=== PATIENT | male | born 1985 | race Caucasian/White ===

== ENCOUNTER 2018-03-17 14:45 | Emergency (ER) | payer OTHER ==
[2018-03-17] MEDS: METOPROLOL TARTRATE 50 MG TAB PO (15:32)
== END 2018-03-17 16:38 | disposition home or self-care (01) ==
LOC: NEPD 14:45
DX: R00.0 Tachycardia, unspecified (principal); F17.200 Nicotine dependence, unspecified, uncomplicated; F20.9 Schizophrenia, unspecified; F31.9 Bipolar disorder, unspecified; Z91.14 Patient's other noncompliance with medication regimen
CPT/HCPCS: 99281

== ENCOUNTER 2018-03-17 21:07 | Emergency (ER) | payer SELFPAY | END 2018-03-17 22:00 | disposition left against medical advice (07) | LOC: NEPD 22:00 | DX: Z00.00 Encounter for general adult medical examination without abnormal findings (principal) | CPT/HCPCS: 99281 ==

== ENCOUNTER 2018-03-19 10:55 | Emergency (ER) | payer OTHER ==
[~2018-03-19] VITALS: Ht 180.3 cm; Wt 88.0 kg
[~2018-03-19 10:55] MED LIST: KLON2TAB PO; LITH600C PO; METO-309 PO; ZOLO100T PO; levodopa PO
[2018-03-19 11:04] VITALS: BP 144/74; PULSE 106; RESP 15; TEMP 97.9; O2SAT 99
--- NOTE | 2018-03-19 11:39 | PD ---
HPI Chief Complaint: Psychiatric Symptoms Time Seen by Provider: 11:15 Travel History International Travel<30 days: No Contact w/Intl Traveler<30days: No Traveled to known affect area: No History of Present Illness HPI Is a 33-year-old male presents emergency department stating that he is depressed and having "suicidal ideations". He states that he feels like his "nerves are sick" and that he "needs an antibiotic". He reports that he was brought over from [place] a couple weeks ago for psychosis. He was admitted to the psychiatric hoang. He states his been stuck in [facility] since. States he was supposed to get a bus pass out of town but he got arrested has been in the [facility] for 10 days. He got out about 3 days ago. Reports since then he has been using drugs including [place] and marijuana. He states he has not slept. He states that he is been feeling more depressed with thoughts of killing himself. History Past Medical History Narrative Medical Schizophrenia/bipolar disorder/depression Tetanus Vaccination: Unknown Past Surgical History Surgical History: No Previous Surgery Social History Alcohol Use: No Tobacco Use: Yes (1PPD) Allergies-Medications (Allergen,Severity, Reaction): Coded Allergies: amoxicillin (Verified Allergy, Unknown, 03/19/18) azithromycin (Verified Allergy, Unknown, Rash, 03/19/18) Reported Meds & Prescriptions Reported Meds & Active Scripts Active Lopressor (Metoprolol Tartrate) 50 Mg Tab 25 Mg PO BID Reported [levodopa] 25 Mg PO BID Zoloft (Sertraline HCl) 100 Mg Tab 100 Mg PO DAILY [place] Carbonate 600 Mg Cap 800 Mg PO BID Klonopin (Clonazepam) 2 Mg Tab 2 Mg PO TID Review of Systems Except as stated in HPI: all other systems reviewed are Neg Physical Exam Narrative GENERAL: 33-year-old man, no acute distress. SKIN: Focused skin assessment warm/dry. HEAD: Atraumatic. Normocephalic. EYES: Pupils equal and round. No scleral icterus. No injection or drainage. ENT: No nasal bleeding or discharge. Mucous membranes pink and moist. NECK: Trachea midline. No JVD. CARDIOVASCULAR: Regular rate and rhythm. No murmur appreciated. RESPIRATORY: No accessory muscle use. Clear to auscultation. Breath sounds equal bilaterally. GASTROINTESTINAL: Abdomen soft, non-tender, nondistended. Hepatic and splenic margins not palpable. MUSCULOSKELETAL: No obvious deformities. No edema peer NEUROLOGICAL: Awake and alert. No obvious cranial nerve deficits. Motor grossly within normal limits. Normal speech. PSYCHIATRIC: Bizarre, somewhat flat, not obviously responding to internal stimuli. Data Data Last Documented VS Vital Signs Date Time Temp Pulse Resp B/P (MAP) Pulse Ox O2 Delivery O2 Flow Rate FiO2 03/19/18 11:04 97.9 106 15 144/74 (97) 99 Orders Orders Complete Blood Count With Diff (03/19/18 11:33) Comprehensive Metabolic Panel (03/19/18 11:33) Thyroid Stimulating Hormone (03/19/18 11:33) Psych Screen (03/19/18 11:33) Drug Screen, Random Urine (03/19/18 11:33) MDM Medical Decision Making Medical Screen Exam Complete: Yes Emergency Medical Condition: Yes Differential Diagnosis Substance-induced mood disorder, depression, malingering, other Narrative Course Medical decision making 33-year-old male presents emerged from complaining of depression and suicidal ideation in the setting of illicit drug use and a history of reported schizophrenia. Recent admission for psychosis. Patient looks well. No other complaints. Patient is medically clear for psychiatric evaluation. Diagnosis Primary Impression: Substance induced mood disorder Noé Rodriguez MD March 19, 2018 11:39
[2018-03-19 12:04] LABS: AUTOMATED NEUTROPHIL # 6.4 TH/MM3 (1.8-7.7); BASOPHIL # 0.1 TH/MM3 (0-0.2); BASOPHIL % 0.8 % (0.0-2.0); EOSINOPHIL # 0.2 TH/MM3 (0-0.4); EOSINOPHIL % 1.7 % (0.0-4.0); HEMATOCRIT 39.8 % (39.0-51.0); HEMOGLOBIN 13.6 GM/DL (13.0-17.0); LYMPH % 27.6 % (9.0-44.0); LYMPHOCYTE # 2.8 TH/MM3 (1.0-4.8); MEAN CELL VOLUME 90.3 FL (80.0-100.0); MEAN CORPUSCULAR HEMOGLOBIN 30.8 PG (27.0-34.0); MEAN CORPUSCULAR HGB CONC 34.1 % (32.0-36.0); MEAN PLATELET VOLUME 8.3 FL (7.0-11.0); MONO % 7.6 % (0.0-8.0); MONOCYTE # 0.8 TH/MM3 (0-0.9); NEUT % 62.3 % (16.0-70.0); PLATELET COUNT 247 TH/MM3 (150-450); RED BLOOD COUNT 4.41 MIL/MM3 (4.50-5.90); RED CELL DISTRIBUTION WIDTH 13.3 % (11.6-17.2); WHITE BLOOD COUNT 10.3 TH/MM3 (4.0-11.0)
[2018-03-19 12:18] LABS: ALBUMIN 3.6 GM/DL (3.4-5.0); AST (GOT) 20 U/L (15-37); BICARBONATE 27.2 MEQ/L (21.0-32.0); BLOOD UREA NITROGEN 15 MG/DL (7-18); CALCIUM 8.5 MG/DL (8.5-10.1); CHLORIDE 113 MEQ/L (98-107); CREATININE 1.25 MG/DL (0.60-1.30); GLOMERULAR FILTRATION RATE 67 ML/MIN (>89); GLUCOSE,RANDOM 103 MG/DL (74-106); SODIUM (NA) 146 MEQ/L (136-145)
[2018-03-19 12:19] LABS: ALT (GPT) 28 U/L (12-78)
[2018-03-19 12:29] LABS: ALKALINE PHOSPHATASE 110 U/L (45-117); TOTAL BILIRUBIN ADULT 0.2 MG/DL (0.2-1.0); TOTAL PROTEIN 7.3 GM/DL (6.4-8.2)
--- NOTE | 2018-03-19 16:52 | PD ---
History of Present Illness Chief Complaint: Psychiatric Symptoms Time Seen by Provider: 16:40 Travel History International Travel<30 Days: No Contact w/Intl Traveler<30days: No Known affected area: No Legal Status Legal Status: Voluntary History of Present Illness: History of Present Illness HPI Patient is a 33-year-old, single, homeless male with history of unspecified psychosis, substance use disorder including cocaine and leona who presents to emergency department voluntarily requesting a psychiatric evaluation with complaint of depression and having "suicidal ideations". He states that he feels like his "nerves are sick" and that he "needs an antibiotic". Patient was most recently admitted to our inpatient psychiatric unit on March 05 and discharged on March 09. Since his discharge from the inpatient psychiatric unit he reports he was arrested for wilde theft and was released 3 days ago. He admits to having used cocaine as well as leona since his release from residential. The patient also tells me that he is trying to get a bus ticket to [facility] and does came to the hospital since the hospital had promised him that they would get him such a ticket. EMR has been reviewed. Current toxicology is positive for cocaine. Patient is seen in [facility]. He has found sleeping but is arousable. He is calm and cooperative. Fair amount of eye contact. Speech is clear and logical and goal directed. He does not appear to be internally preoccupied and denies any hallucinations. He denies any suicidal or homicidal ideation, intent or plan. He reports that he had not slept for the past 3 nights due to his use of substances. He is appreciative today that he was able to sleep while he was here. He does not have any interest in getting back on his psychiatric medications at this time. As stated previously his main concern is being able to get a bus ticket to get back to [facility]. PFSH Past Medical History Asthma: Yes Bipolar Disorder: Yes Anxiety: Yes Depression: Yes Heart Rhythm Problems: Yes (tachycardia) COPD: No Cerebrovascular Accident: No Diminished Hearing: No Endocrine: Yes Genitourinary: No Immune Disorder: No Implanted Vascular Access Dvce: No Musculoskeletal: No Neurologic: Yes (FIBROMYALGIA) Psychiatric: Yes (Manic Depression) Reproductive: No Respiratory: Yes (ASTHMA) Immunizations Current: Yes Migraines: No Schizophrenia: Yes Tetanus Vaccination: Unknown Past Surgical History Surgical History: No Previous Surgery Abdominal Surgery: No AICD: No Arteriovenous Shunt: No Cardiac Surgery: No Ear Surgery: No Endocrine Surgery: No Eye Surgery: No Genitourinary Surgery: No Gynecologic Surgery: No Insulin Pump: No Joint Replacement: No Oral Surgery: No Pacemaker: No Thoracic Surgery: No Other Surgery: Yes Psychiatric History Psychiatric History Hx Psychiatric Treatment: Inpatient psychiatric admission 03/05/2018. Reports history of previous psych admissions but unable to provide any details. No previous history of suicide attempt. History of Inpatient Treatment: Yes Guns or firearms in home: No Social History Single, never , no children. Has completed 1 year of college. On SSI. Homeless Hx Alcohol Use: No Hx Tobacco Use: Yes (1PPD) Hx Substance Use: Yes Substance Use Type: Ecstasy, Cocaine Other Substances Used: Spice, Leona, Ecstasy Hx of Substance Use Treatment: No Allergies-Medications (Allergen,Severity, Reaction): Coded Allergies: amoxicillin (Verified Allergy, Unknown, 03/19/18) azithromycin (Verified Allergy, Unknown, Rash, 03/19/18) Reported Meds & Prescriptions Reported Meds & Active Scripts Active Lopressor (Metoprolol Tartrate) 50 Mg Tab 25 Mg PO BID Reported [levodopa] 25 Mg PO BID Zoloft (Sertraline HCl) 100 Mg Tab 100 Mg PO DAILY [place] Carbonate 600 Mg Cap 800 Mg PO BID Klonopin (Clonazepam) 2 Mg Tab 2 Mg PO TID Review of Systems Except as stated in HPI: all other systems reviewed are Neg Mental Status Examination Appearance: Disheveled Consciousness: Alert Orientation: x4 Motor Activity: Normal gait Speech: Unremarkable Language: Adequate Fund of Knowledge: Adequate Attention and Concentration: Adequate Memory: Unremarkable Mood: Appropriate Affect: Appropriate Thought Process & Associations: Intact, Logical, Goal directed Thought Content: Appropriate Hallucination Type: None Delusion Type: None Suicidal Ideation: No Suicidal Plan: No Suicidal Intention: No Homicidal Ideation: No Homicidal Plan: No Homicidal Intention: No Insight: Poor Judgment: Impulsive MDM Medical Decision Making Medical Record Reviewed: Yes Assessment/Plan Patient is a 33-year-old, single, homeless male with history of unspecified psychosis, substance use disorder including cocaine and leona who presents to emergency department voluntarily requesting a psychiatric evaluation with complaint of depression and having "suicidal ideations". He states that he feels like his "nerves are sick" and that he "needs an antibiotic". Patient was most recently admitted to our inpatient psychiatric unit on March 05 and discharged on March 09. Since his discharge from the inpatient psychiatric unit he reports he was arrested for wilde theft and was released 3 days ago. He admits to having used cocaine as well as leona since his release from residential. The patient also tells me that he is trying to get a bus ticket to [facility] and does came to the hospital since the hospital had promised him that they would get him such a ticket. Patient was allowed to rest for some time and he slept. He did not present any evidence of any hallucinations, no psychosis, no delusions and no paranoia. No suicidal or homicidal ideation. The patient does not meet criteria for inpatient psychiatric treatment. He is provided information on services at [facility] and encouraged to follow up there tomorrow for medication. Patient is psychiatric clear for discharge from the ED. Orders Orders Complete Blood Count With Diff (03/19/18 11:33) Comprehensive Metabolic Panel (03/19/18 11:33) Thyroid Stimulating Hormone (03/19/18 11:33) Psych Screen (03/19/18 11:33) Drug Screen, Random Urine (03/19/18 11:33) Diet Regular Basic (03/19/18 Lunch) Diet Regular Basic (03/19/18 Dinner) Results Vital Signs Date Time Temp Pulse Resp B/P (MAP) Pulse Ox O2 Delivery O2 Flow Rate FiO2 03/19/18 11:04 97.9 106 15 144/74 (97) 99 Laboratory Tests Test 03/19/18 11:45 03/19/18 12:50 White Blood Count 10.3 Red Blood Count 4.41 Hemoglobin 13.6 Hematocrit 39.8 Mean Corpuscular Volume 90.3 Mean Corpuscular Hemoglobin 30.8 Mean Corpuscular Hemoglobin Concent 34.1 Red Cell Distribution Width 13.3 Platelet Count 247 Mean Platelet Volume 8.3 Neutrophils (%) (Auto) 62.3 Lymphocytes (%) (Auto) 27.6 Monocytes (%) (Auto) 7.6 Eosinophils (%) (Auto) 1.7 Basophils (%) (Auto) 0.8 Neutrophils # (Auto) 6.4 Lymphocytes # (Auto) 2.8 Monocytes # (Auto) 0.8 Eosinophils # (Auto) 0.2 Basophils # (Auto) 0.1 CBC Comment DIFF FINAL Differential Comment Blood Urea Nitrogen 15 Creatinine 1.25 Random Glucose 103 Total Protein 7.3 Albumin 3.6 Calcium Level 8.5 Alkaline Phosphatase 110 Aspartate Amino Transf (AST/SGOT) 20 Alanine Aminotransferase (ALT/SGPT) 28 Total Bilirubin 0.2 Sodium Level 146 Potassium Level 4.1 Chloride Level 113 Carbon Dioxide Level 27.2 Anion Gap 6 Estimat Glomerular Filtration Rate 67 Thyroid Stimulating Hormone 3rd Gen 0.431 Urine Opiates Screen NEG Urine Barbiturates Screen NEG Urine Amphetamines Screen NEG Urine Benzodiazepines Screen NEG Urine Cocaine Screen POS Urine Cannabinoids Screen NEG Diagnosis Primary Impression: Cocaine abuse Additional Impression: Substance induced mood disorder Psychiatrically Cleared: Yes Med/ Other Pt Specific Info: No Meds Exist/No RX given Disposition: 01 DISCHARGE HOME Condition: Stable Problem Qualifiers Sandra Acevedo March 19, 2018 16:52
--- NOTE | 2018-03-19 17:14 | PD ---
Physical Exam Time Seen by Provider: 17:13 ENE Hand has evaluated the patient and cleared the patient for discharge. Data Data Last Documented VS Vital Signs Date Time Temp Pulse Resp B/P (MAP) Pulse Ox O2 Delivery O2 Flow Rate FiO2 03/19/18 11:04 97.9 106 15 144/74 (97) 99 Orders Orders Complete Blood Count With Diff (03/19/18 11:33) Comprehensive Metabolic Panel (03/19/18 11:33) Thyroid Stimulating Hormone (03/19/18 11:33) Psych Screen (03/19/18 11:33) Drug Screen, Random Urine (03/19/18 11:33) Diet Regular Basic (03/19/18 Lunch) Diet Regular Basic (03/19/18 Dinner) Labs Laboratory Tests Test 03/19/18 11:45 03/19/18 12:50 White Blood Count 10.3 TH/MM3 Red Blood Count 4.41 MIL/MM3 Hemoglobin 13.6 GM/DL Hematocrit 39.8 % Mean Corpuscular Volume 90.3 FL Mean Corpuscular Hemoglobin 30.8 PG Mean Corpuscular Hemoglobin Concent 34.1 % Red Cell Distribution Width 13.3 % Platelet Count 247 TH/MM3 Mean Platelet Volume 8.3 FL Neutrophils (%) (Auto) 62.3 % Lymphocytes (%) (Auto) 27.6 % Monocytes (%) (Auto) 7.6 % Eosinophils (%) (Auto) 1.7 % Basophils (%) (Auto) 0.8 % Neutrophils # (Auto) 6.4 TH/MM3 Lymphocytes # (Auto) 2.8 TH/MM3 Monocytes # (Auto) 0.8 TH/MM3 Eosinophils # (Auto) 0.2 TH/MM3 Basophils # (Auto) 0.1 TH/MM3 CBC Comment DIFF FINAL Differential Comment Blood Urea Nitrogen 15 MG/DL Creatinine 1.25 MG/DL Random Glucose 103 MG/DL Total Protein 7.3 GM/DL Albumin 3.6 GM/DL Calcium Level 8.5 MG/DL Alkaline Phosphatase 110 U/L Aspartate Amino Transf (AST/SGOT) 20 U/L Alanine Aminotransferase (ALT/SGPT) 28 U/L Total Bilirubin 0.2 MG/DL Sodium Level 146 MEQ/L Potassium Level 4.1 MEQ/L Chloride Level 113 MEQ/L Carbon Dioxide Level 27.2 MEQ/L Anion Gap 6 MEQ/L Estimat Glomerular Filtration Rate 67 ML/MIN Thyroid Stimulating Hormone 3rd Gen 0.431 uIU/ML Urine Opiates Screen NEG Urine Barbiturates Screen NEG Urine Amphetamines Screen NEG Urine Benzodiazepines Screen NEG Urine Cocaine Screen POS Urine Cannabinoids Screen NEG MDM Supervised Visit with JEREMY: No Narrative Course ENE Flores has evaluated the patient and cleared the patient for discharge. Patient contracts safety. Denies suicidal or homicidal ideations. Patient will be provided community resource packet to [facility] for follow-up. Has friends and family for support. Patient was medically cleared by alternate provider prior to psych screening. Patient has been evaluated by psychiatry and and is now cleared for discharge. Diagnosis Primary Impression: Cocaine abuse Additional Impression: Substance induced mood disorder Referrals: [facility] (Out patient) [facility] Primary Care Physician Psychiatrist Flaquita [facility] Patient Instructions: Cocaine Abuse (ED), General Instructions, Mood Disorders (ED) Additional Instruction: Contract safety to your self and others Follow-up with psychiatry Follow-up with primary care provider Follow-up with Tylor Soni Return to the emergency department immediately with worsening of symptoms Med/Other Pt SpecificInfo: No Change to Meds, No Meds Exist/No RX given Disposition: 01 DISCHARGE HOME Condition: Stable Opal Ledesma March 19, 2018 17:14
== END 2018-03-19 17:32 | disposition home or self-care (01) ==
LOC: NEPD 10:55 → NEPJ 17:32
DX: F14.14 Cocaine abuse with cocaine-induced mood disorder (principal); F20.9 Schizophrenia, unspecified; F31.9 Bipolar disorder, unspecified; F17.200 Nicotine dependence, unspecified, uncomplicated; Z79.899 Other long term (current) drug therapy
CPT/HCPCS: 80053; 80307; 84443; 85025; 99283

== ENCOUNTER 2018-03-23 07:08 | Emergency (ER) | payer SELFPAY ==
[2018-03-23 07:18] VITALS: BP 127/77; PULSE 103; RESP 18; TEMP 98; O2SAT 98
--- NOTE | 2018-03-23 07:41 | PD ---
HPI Chief Complaint: Pain: Acute or Chronic Time Seen by Provider: 07:38 Travel History International Travel<30 days: No Contact w/Intl Traveler<30days: No Traveled to known affect area: No History of Present Illness HPI 33-year-old male who is homeless, with frequent visits to the emergency department, presents emergency department for evaluation of bilateral foot pain. Patient states he has walked long distances. He is requesting IV fluid for his foot pain. Denies any injury. Denies any fever chills. Denies any other symptoms at this time. History Past Medical Histgory Medical History: Denies Significant Hx Tetanus Vaccination: Unknown Social History Alcohol Use: No Tobacco Use: Yes (1PPD) Allergies-Medications (Allergen,Severity, Reaction): Coded Allergies: amoxicillin (Verified Allergy, Unknown, 03/19/18) azithromycin (Verified Allergy, Unknown, Rash, 03/19/18) Reported Meds & Prescriptions Reported Meds & Active Scripts Active Lopressor (Metoprolol Tartrate) 50 Mg Tab 25 Mg PO BID Reported [levodopa] 25 Mg PO BID Zoloft (Sertraline HCl) 100 Mg Tab 100 Mg PO DAILY [place] Carbonate 600 Mg Cap 800 Mg PO BID Klonopin (Clonazepam) 2 Mg Tab 2 Mg PO TID Review of Systems Except as stated in HPI: all other systems reviewed are Neg Physical Exam Narrative GENERAL: Well-nourished, unkempt male patient, ambulatory and in no acute distress SKIN: Focused skin assessment warm/dry. No erythema or edema. The distal feet are peeling, however the skin appears dry. There is no drainage. No cracking. No obvious trauma. HEAD: Normocephalic. EYES: No scleral icterus. No injection or drainage. NECK: Supple, trachea midline. No JVD or lymphadenopathy. CARDIOVASCULAR: Elevated rate and rhythm without murmurs, gallops, or rubs. RESPIRATORY: Breath sounds equal bilaterally. No accessory muscle use. MUSCULOSKELETAL: No cyanosis, or edema. BACK: Nontender without obvious deformity. No CVA tenderness. Data Data Last Documented VS Vital Signs Date Time Temp Pulse Resp B/P (MAP) Pulse Ox O2 Delivery O2 Flow Rate FiO2 03/23/18 07:52 97 03/23/18 07:18 98.0 103 18 127/77 (94) MDM Medical Screen Exam Complete: Yes Emergency Medical Condition: No Differential Diagnosis Foot pain Narrative Course 33-year-old male presents emergency department for evaluation of bilateral foot pain after walking long distances per his report. The feet appear without erythema or edema. The skin is intact. There is some peeling of the distal feet however this is dry. Patient is mildly tachycardic but does use cocaine and this could likely be secondary to that. Patient appears nontoxic. At this time there are no urgent or emergent needs medical intervention identified. A medical screening exam was performed: At the time of evaluation the presenting medical condition was determined not to be of an emergent nature. The patient was given the option of receiving additional care, but declined. Patient was given options for additional community resources from which to obtain care. The Patient Has Been advised to seek medical attention for their presenting complaint. The patient has been advised to return to the ER at any time if an emergent condition develops. Primary Impression: Encounter for medical screening examination Condition: Stable Justina Núñez March 23, 2018 07:41
== END 2018-03-23 07:55 | disposition left against medical advice (07) ==
LOC: NEPD 07:08
DX: M79.672 Pain in left foot (principal); M79.671 Pain in right foot; F14.90 Cocaine use, unspecified, uncomplicated; F17.210 Nicotine dependence, cigarettes, uncomplicated; Z88.0 Allergy status to penicillin; Z79.899 Other long term (current) drug therapy
CPT/HCPCS: 99281

== ENCOUNTER 2018-03-27 19:18 | Emergency (ER) | payer OTHER ==
[2018-03-27 19:26] VITALS: BP 140/92; PULSE 112; RESP 18; TEMP 98.4; O2SAT 97
[2018-03-27] MEDS ORDERED: TOLNAFTATE 1% POWDER 45 GM BTL TOPICAL ONE (22:15)
[2018-03-27] MEDS ORDERED: MICO1POW7 TOPICAL (22:24)
--- NOTE | 2018-03-27 22:24 | PD ---
HPI Chief Complaint: Pain: Acute or Chronic Time Seen by Provider: 22:08 Travel History International Travel<30 days: No Contact w/Intl Traveler<30days: No Traveled to known affect area: No History of Present Illness HPI Patient is a 33-year-old male presenting to the emergency department for evaluation of bilateral foot pain. Patient reports that he is walking a lot and his feet have been wet. He is homeless. He reports his pain is 4 out of 10 , he states there is sore in nature. No alleviating factors, pain is exacerbated with walking. Symptom onset is unknown, symptoms are moderate in nature. No alleviating factors. He has no other complaints at this time. PFSH Past Medical History Asthma: Yes Bipolar Disorder: Yes Anxiety: Yes Depression: Yes Neurologic: Yes (FIBROMYALGIA) Immunizations Current: Yes Schizophrenia: Yes Past Surgical History Other Surgery: Yes Social History Alcohol Use: No Tobacco Use: Yes (1PPD) Substance Use: Yes Allergies-Medications (Allergen,Severity, Reaction): Coded Allergies: amoxicillin (Verified Allergy, Unknown, 03/19/18) azithromycin (Verified Allergy, Unknown, Rash, 03/19/18) Reported Meds & Prescriptions Reported Meds & Active Scripts Active Lopressor (Metoprolol Tartrate) 50 Mg Tab 25 Mg PO BID Reported [levodopa] 25 Mg PO BID Zoloft (Sertraline HCl) 100 Mg Tab 100 Mg PO DAILY [place] Carbonate 600 Mg Cap 800 Mg PO BID Klonopin (Clonazepam) 2 Mg Tab 2 Mg PO TID Review of Systems Except as stated in HPI: all other systems reviewed are Neg Musculoskeletal: Positive: Myalgias Skin: Positive Other Physical Exam Narrative GENERAL: Well-developed, well-nourished, disheveled male. Presenting in no acute distress. SKIN: Warm and dry. Skin to bilateral feet is wet and peeling. No fissures noted in between toes. No erythema or bleeding. HEAD: Normocephalic. EYES: No scleral icterus. No injection or drainage. NECK: Supple, trachea midline. No JVD or lymphadenopathy. CARDIOVASCULAR: Regular rate and rhythm without murmurs, gallops, or rubs. RESPIRATORY: Breath sounds equal bilaterally. No accessory muscle use. GASTROINTESTINAL: Abdomen soft, non-tender, nondistended. MUSCULOSKELETAL: No cyanosis, or edema. BACK: Nontender without obvious deformity. No CVA tenderness. Data Data Last Documented VS Vital Signs Date Time Temp Pulse Resp B/P (MAP) Pulse Ox O2 Delivery O2 Flow Rate FiO2 03/27/18 19:26 98.4 112 18 140/92 (108) 97 Orders Orders Tolnaftate 1% Powder (Tinactin 1% Powder (03/27/18 22:15) MDM Medical Decision Making Medical Screen Exam Complete: Yes Emergency Medical Condition: Yes Interpretation(s) Vital Signs Date Time Temp Pulse Resp B/P (MAP) Pulse Ox O2 Delivery O2 Flow Rate FiO2 03/27/18 19:26 98.4 112 18 140/92 (108) 97 Differential Diagnosis Tinea pedis versus normal examination versus calluses versus other Narrative Course Patient is a 33-year-old male presenting to emergency department for evaluation of bilateral foot pain. On exam patient's feet are wet, exam appears consistent with tinea pedis. Patient will be given antifungal powder and dry socks. He was advised to keep his feet dry, he was given several pairs of socks. Patient was advised to use the powder twice daily. He was encouraged to follow-up at the [facility]. Patient stable for discharge. Diagnosis Primary Impression: Tinea pedis of both feet Referrals: [facility] Patient Instructions: General Instructions, Tinea Pedis (DC) Additional Instructions: Follow-up at the [facility] Keep feet clean and dry Use powder twice daily Return to emergency department for any new or worsening symptoms Med/Other Pt SpecificInfo: Prescription(s) given Scripts Miconazole Topical Powder (Lotrimin AF Topical Powder) 2 % Pow 1 APPLIC TOPICAL BID for Fungal Infection, #1 CAN 0 Refills Prov: Yoon Dean 03/27/18 Disposition: 01 DISCHARGE HOME Condition: Stable Yoon Dean March 27, 2018 22:24
[2018-03-27] MEDS ORDERED: NYSTATIN 100,000 U/GM PWD 15 GM BTL TOPICAL ONE (22:30)
== END 2018-03-27 23:05 | disposition home or self-care (01) ==
LOC: NEPD 19:18
DX: B35.3 Tinea pedis (principal); F31.9 Bipolar disorder, unspecified; F41.8 Other specified anxiety disorders; F17.200 Nicotine dependence, unspecified, uncomplicated; Z87.09 Personal history of other diseases of the respiratory system; Z86.69 Personal history of other diseases of the nervous system and sense organs
CPT/HCPCS: 99282

== ENCOUNTER 2018-04-06 09:57 | Emergency (ER) | payer OTHER ==
[~2018-04-06] VITALS: Ht 180.3 cm; Wt 85.0 kg
[~2018-04-06 09:57] MED LIST changes: -KLON2TAB PO; -METO-309 PO; +MICO1POW7 TOPICAL; -levodopa PO
[2018-04-06 10:04] VITALS: BP 136/83; PULSE 102; RESP 18; TEMP 99.2; O2SAT 96
[2018-04-06] MEDS ORDERED: IBUPROFEN 600 MG TAB PO ONE (10:15)
--- NOTE | 2018-04-06 10:16 | PD ---
HPI Chief Complaint: Pain: Acute or Chronic Time Seen by Provider: 10:08 Travel History International Travel<30 days: No Contact w/Intl Traveler<30days: No Traveled to known affect area: No History of Present Illness HPI 33-year-old man, homeless, schizophrenic, presents emerged from complaining of left thigh pain. States his this morning felt a pulling pain in his left leg. No history of previous injuries. Able to walk. No injuries to the leg, no falls. No other complaints. History Past Medical History Narrative Medical Schizophrenia Influenza Vaccination: Yes Social History Alcohol Use: No Tobacco Use: Yes (1PPD) Allergies-Medications (Allergen,Severity, Reaction): Coded Allergies: amoxicillin (Verified Allergy, Unknown, 03/19/18) azithromycin (Verified Allergy, Unknown, Rash, 03/19/18) Reported Meds & Prescriptions Reported Meds & Active Scripts Active Lotrimin AF Topical Powder (Miconazole Topical Powder) 2 % Pow 1 Applic TOPICAL BID Reported Zoloft (Sertraline HCl) 100 Mg Tab 100 Mg PO DAILY [place] Carbonate 600 Mg Cap 800 Mg PO BID Review of Systems Except as stated in HPI: all other systems reviewed are Neg Physical Exam Narrative GENERAL: Disheveled 33-year-old man, no acute distress. SKIN: Focused skin assessment warm/dry. HEAD: Atraumatic. Normocephalic. CARDIOVASCULAR: Warm and well perfused peer RESPIRATORY: Normal rate and effort. GASTROINTESTINAL: Abdomen soft, non-tender, nondistended. Hepatic and splenic margins not palpable. MUSCULOSKELETAL: Grossly normal appearance of both legs. Full range of motion without pain. No palpable tenderness. Normal gait. NEUROLOGICAL: Awake and alert. No obvious cranial nerve deficits. Motor grossly within normal limits. Normal speech. PSYCHIATRIC: Poor eye contact. Flat affect. Data Data Last Documented VS Vital Signs Date Time Temp Pulse Resp B/P (MAP) Pulse Ox O2 Delivery O2 Flow Rate FiO2 04/06/18 10:04 99.2 102 18 136/83 (100) 96 Orders Orders Ibuprofen (Motrin) (04/06/18 10:15) Ed Discharge Order (04/06/18 10:11) [facility] Medical Decision Making Medical Screen Exam Complete: Yes Emergency Medical Condition: Yes Differential Diagnosis Leg strain or sprain, contusion, sciatica, injury, other Narrative Course Medical decision making 33-year-old male with a leg sprain, schizophrenia, and homeless. He looks fine. The leg exam is unremarkable. He is able to walk without difficulty. Diagnosis Primary Impression: Leg pain Patient Instructions: General Instructions Additional Instructions: Take ibuprofen if needed for leg pain. Med/Other Pt SpecificInfo: No Change to Meds Disposition: 01 DISCHARGE HOME Condition: Stable Noé Rodriguez MD April 06, 2018 10:16
== END 2018-04-06 10:54 | disposition home or self-care (01) ==
LOC: NEPD 09:57
DX: M79.652 Pain in left thigh (principal); F20.9 Schizophrenia, unspecified; F17.200 Nicotine dependence, unspecified, uncomplicated
CPT/HCPCS: 99283

== ENCOUNTER 2018-05-04 12:30 | Emergency (ER) | payer OTHER ==
[~2018-05-04] VITALS: Ht 175.3 cm; Wt 80.0 kg
[2018-05-04] MEDS ORDERED: SILVER SULFADIAZINE 1% CR 50 GM JAR TOPICAL ONE (13:00)
[2018-05-04] MEDS ORDERED: IBUPROFEN 800 MG TAB PO ONE (13:00)
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
[2018-05-04 13:24] VITALS: BP 131/80; PULSE 80; RESP 16; TEMP 97.8; O2SAT 98
[2018-05-04] MEDS ORDERED: SILV1CRE20 TOPICAL (13:49)
[2018-05-04] MEDS ORDERED: CLIN150C14 PO (13:49)
[2018-05-05] MEDS ORDERED: SERO300T PO (12:44)
[2018-05-05] MEDS ORDERED: KLON2TAB PO (12:44)
[2018-05-05] MEDS ORDERED: MEMA1CAP3 PO (12:44)
[2018-05-05] MEDS ORDERED: VORT1TAB3 PO (12:44)
--- NOTE | 2018-05-05 13:42 | EKG ---
Date Performed: 05/04/2018 Time Performed: 12:54:35 PTAGE: 33 years EKG: SINUS TACHYCARDIA WITH SHORT NM INTERVAL INCOMPLETE RIGHT BUNDLE BRANCH BLOCK ABNORMAL RHYT ECG INTERPRETATION BASED ON A DEFAULT AGE OF 41 YEARS NO PREVIOUS TRACING DOCTOR: Javier Bagley Interpretating Date/Time 05/05/2018 13:41:26
[2018-05-09] MEDS ORDERED: CIPR-9 PO (19:19)
== END 2018-05-04 14:17 | disposition home or self-care (01) ==
LOC: NEPE 12:30
DX: T23.201A Burn of second degree of right hand, unspecified site, initial encounter (principal); F20.9 Schizophrenia, unspecified; F31.9 Bipolar disorder, unspecified; X17.XXXA Contact with hot engines, machinery and tools, initial encounter; Z79.899 Other long term (current) drug therapy
CPT/HCPCS: 16020; 93005

== ENCOUNTER 2018-05-05 12:10 | Emergency (ER) | payer OTHER ==
[~2018-05-05 12:10] MED LIST changes: -MICO1POW7 TOPICAL
[2018-05-05 12:30] VITALS: BP 117/72; PULSE 119; RESP 18; TEMP 98.6; O2SAT 97
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
[2018-05-05] MEDS ORDERED: KLON2TAB PO (12:44)
[2018-05-05] MEDS ORDERED: MEMA1CAP3 PO (12:44)
[2018-05-05] MEDS ORDERED: SERO300T PO (12:44)
[2018-05-05] MEDS ORDERED: VORT1TAB3 PO (12:44)
[2018-05-05] MEDS ORDERED: clonazePAM 0.5 MG TAB PO ONE (12:45)
[2018-05-05] MEDS ORDERED: SILVER SULFADIAZINE 1% CR 50 GM JAR TOPICAL ONE (12:45)
[2018-05-05] MEDS: CEPHALEXIN MONOHYDRATE 500 MG CAP PO SCH ×3 (12:45→22:00)
[2018-05-05 13:12] LABS: AUTOMATED NEUTROPHIL # 9.5 TH/MM3 (1.8-7.7); BASOPHIL # 0.1 TH/MM3 (0-0.2); BASOPHIL % 0.6 % (0.0-2.0); EOSINOPHIL # 0.5 TH/MM3 (0-0.4); EOSINOPHIL % 3.5 % (0.0-4.0); HEMATOCRIT 44.5 % (39.0-51.0); HEMOGLOBIN 14.8 GM/DL (13.0-17.0); LYMPH % 13.1 % (9.0-44.0); LYMPHOCYTE # 1.7 TH/MM3 (1.0-4.8); MEAN CELL VOLUME 87.4 FL (80.0-100.0); MEAN CORPUSCULAR HGB CONC 33.2 % (32.0-36.0); MEAN PLATELET VOLUME 9.2 FL (7.0-11.0); MONO % 10.9 % (0.0-8.0); MONOCYTE # 1.4 TH/MM3 (0-0.9); NEUT % 71.9 % (16.0-70.0); PLATELET COUNT 239 TH/MM3 (150-450); RED CELL DISTRIBUTION WIDTH 13.3 % (11.6-17.2); WHITE BLOOD COUNT 13.2 TH/MM3 (4.0-11.0)
[2018-05-05 13:30] LABS: ALT (GPT) 18 U/L (12-78); AST (GOT) 21 U/L (15-37); BICARBONATE 24.6 MEQ/L (21.0-32.0); BLOOD UREA NITROGEN 19 MG/DL (7-18); CALCIUM 8.7 MG/DL (8.5-10.1); CHLORIDE 107 MEQ/L (98-107); CREATININE 1.26 MG/DL (0.60-1.30); GLOMERULAR FILTRATION RATE 66 ML/MIN (>89); GLUCOSE,RANDOM 92 MG/DL (74-106); SODIUM (NA) 140 MEQ/L (136-145)
[2018-05-05 13:40] LABS: ALKALINE PHOSPHATASE 105 U/L (45-117); TOTAL BILIRUBIN ADULT 0.3 MG/DL (0.2-1.0)
[2018-05-05 16:00] VITALS: BP 100/57; PULSE 118; RESP 20; TEMP 98.8; O2SAT 95
[2018-05-05 18:31] VITALS: BP 113/56; PULSE 105; RESP 20; O2SAT 98
[2018-05-06] MEDS: CEPHALEXIN MONOHYDRATE 500 MG CAP PO SCH (06:00)
[2018-05-06 06:12] VITALS: BP 140/66; PULSE 99; RESP 16; TEMP 98.4; O2SAT 97
--- NOTE | 2018-05-06 08:48 | PD ---
Physical Exam Date Seen by Provider: May 06, 2018 Time Seen by Provider: 08:45 Data Data Last Documented VS Vital Signs Date Time Temp Pulse Resp B/P (MAP) Pulse Ox O2 Delivery O2 Flow Rate FiO2 05/06/18 06:12 98.4 99 16 140/66 (90) 97 05/05/18 18:31 Room Air Orders Orders Complete Blood Count With Diff (05/05/18 12:33) Comprehensive Metabolic Panel (05/05/18 12:33) Thyroid Stimulating Hormone (05/05/18 12:33) Psych Screen (05/05/18 12:33) Drug Screen, Random Urine (05/05/18 12:33) Alcohol (Ethanol) (05/05/18 12:33) Clonazepam (Klonopin) (05/05/18 12:45) Silver Sulfadia 1% Crm (50 Gm) (Silvaden (05/05/18 12:45) Wound Care (05/05/18 12:33) Cephalexin (Keflex) (05/05/18 12:45) Diet Regular Basic (05/05/18 Dinner) Diet Regular Basic (05/06/18 Breakfast) Labs Laboratory Tests Test 05/05/18 12:33 05/06/18 05:25 White Blood Count 13.2 TH/MM3 Red Blood Count 5.10 MIL/MM3 Hemoglobin 14.8 GM/DL Hematocrit 44.5 % Mean Corpuscular Volume 87.4 FL Mean Corpuscular Hemoglobin 29.0 PG Mean Corpuscular Hemoglobin Concent 33.2 % Red Cell Distribution Width 13.3 % Platelet Count 239 TH/MM3 Mean Platelet Volume 9.2 FL Neutrophils (%) (Auto) 71.9 % Lymphocytes (%) (Auto) 13.1 % Monocytes (%) (Auto) 10.9 % Eosinophils (%) (Auto) 3.5 % Basophils (%) (Auto) 0.6 % Neutrophils # (Auto) 9.5 TH/MM3 Lymphocytes # (Auto) 1.7 TH/MM3 Monocytes # (Auto) 1.4 TH/MM3 Eosinophils # (Auto) 0.5 TH/MM3 Basophils # (Auto) 0.1 TH/MM3 CBC Comment DIFF FINAL Differential Comment Blood Urea Nitrogen 19 MG/DL Creatinine 1.26 MG/DL Random Glucose 92 MG/DL Total Protein 8.0 GM/DL Albumin 4.0 GM/DL Calcium Level 8.7 MG/DL Alkaline Phosphatase 105 U/L Aspartate Amino Transf (AST/SGOT) 21 U/L Alanine Aminotransferase (ALT/SGPT) 18 U/L Total Bilirubin 0.3 MG/DL Sodium Level 140 MEQ/L Potassium Level 3.7 MEQ/L Chloride Level 107 MEQ/L Carbon Dioxide Level 24.6 MEQ/L Anion Gap 8 MEQ/L Estimat Glomerular Filtration Rate 66 ML/MIN Thyroid Stimulating Hormone 3rd Gen 0.475 uIU/ML Ethyl Alcohol Level LESS THAN 3 MG/DL Urine Opiates Screen NEG Urine Barbiturates Screen NEG Urine Amphetamines Screen NEG Urine Benzodiazepines Screen NEG Urine Cocaine Screen POS Urine Cannabinoids Screen POS MDM Supervised Visit with JEREMY: No Narrative Course 33-year-old male brought to the ED under Gregory act for psychiatric evaluation. He was evaluated by Hira Choe PA-C. He is found to have some superficial mackey and cuts. He was medically cleared. He was then evaluated by Dr. Najera. Gregory act was lifted. He is diagnosed with substance-induced mood disorder. Plan is for the patient to follow-up with outpatient psychiatric resources. He is stable and discharged home. Diagnosis Primary Impression: Burn of hand, right, second degree Qualified Codes: T23.231D - Burn of second degree of multiple right fingers ( nail), not including thumb, subsequent encounter Additional Impression: Substance induced mood disorder Referrals: [facility] Additional Instruction: Keep your wounds clean, dry and covered. Monitor for signs of infection such as drainage, fever, increased pain. Follow-up with [facility]. Return to the ED for any urgent or emergent medical condition. Disposition: 01 DISCHARGE HOME Condition: Stable Nury Braxton May 06, 2018 08:48
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
[2018-05-09] MEDS ORDERED: CIPR-9 PO (19:19)
== END 2018-05-06 09:49 | disposition home or self-care (01) ==
LOC: NEPJ 12:10
DX: Z02.89 Encounter for other administrative examinations (principal); T23.231D Burn of second degree of multiple right fingers (nail), not including thumb, subsequent encounter; F19.94 Other psychoactive substance use, unspecified with psychoactive substance-induced mood disorder; F41.8 Other specified anxiety disorders; F31.9 Bipolar disorder, unspecified; F17.200 Nicotine dependence, unspecified, uncomplicated; Z79.899 Other long term (current) drug therapy; Z87.09 Personal history of other diseases of the respiratory system; Z87.39 Personal history of other diseases of the musculoskeletal system and connective tissue; X16.XXXD Contact with hot heating appliances, radiators and pipes, subsequent encounter
CPT/HCPCS: 16020; 80053; 80307; 84443; 85025

== ENCOUNTER 2018-10-21 09:12 | Inpatient (IN) ==
--- NOTE | 2018-10-21 09:58 | ED ---
HPI General Chief complaint: Psychiatric Symptoms Stated complaint: Psych Eval Time Seen by Provider: 10/21/18 09:45 Source: patient Mode of arrival: ambulatory Limitations: no limitations History of Present Illness HPI narrative: 33yo M with PMH of bipolar disorder/schizophrenia here with c/o suicidal ideations. He was just seen here yesterday but said today he feels worst. Said he did not take drugs today but tried to overdose on mucinex yesterday to get high. Denies any fever, chest pain, sob, n/v, abdominal pain, focal weakness or numbness. Related Data Home Medications Medication Instructions Recorded Confirmed escitalopram oxalate [Lexapro] 5 mg PO BID 10/21/18 10/21/18 mirtazapine [Remeron] 15 mg PO HS 10/21/18 10/21/18 quetiapine [Seroquel] 100 mg PO HS 10/21/18 10/21/18 Allergies Allergy/AdvReac Type Severity Reaction Status Date / Time azithromycin Allergy Intermediate Rash Verified 10/21/18 09:37 Review of Systems ROS: all other systems reviewed are negative FORMERLY [facility], [facility] Social History Social History Substance History: Active Abuse Second Hand Smoke Exposure: Yes Smoking Status: Current every day smoker Tobacco Type: Cigarettes How Often Do You Have a Drink Containing Alcohol: 2 to 3 times a week Recent Travel in [place] within the Last 8 Weeks: No Recent Out of Country Travel within the Last 8 Weeks: No Exam Narrative Exam Narrative: GENERAL: 33yo M not in distress. SKIN: Focused skin assessment warm/dry. Multiple open abrasions to his feet as he states that he was walking barefoot and also has shoes on with no socks. No cellulitis surrounding area at this time. HEAD: Atraumatic. Normocephalic. EYES: Pupils equal and round at 4mm bilaterally. No scleral icterus. No injection or drainage. ENT: No nasal bleeding or discharge. Mucous membranes pink and moist. NECK: Trachea midline. No JVD. CARDIOVASCULAR: Tachycardic in the 115bpm. No murmur appreciated. RESPIRATORY: No accessory muscle use. Clear to auscultation. Breath sounds equal bilaterally. GASTROINTESTINAL: Abdomen soft, non-tender, nondistended. MUSCULOSKELETAL: No obvious deformities. No clubbing. No cyanosis. No edema. NEUROLOGICAL: Awake and alert. No obvious cranial nerve deficits. Motor grossly within normal limits. Normal speech. Course Initial Documented Vital Signs Temperature 97.3 F L 10/21/18 09:34 Pulse Rate 115 H 10/21/18 09:34 Respiratory Rate 20 10/21/18 09:34 Blood Pressure 144/91 H 10/21/18 09:34 Pulse Oximetry 100 10/21/18 09:34 Last Documented Vital Signs Temperature 97.1 F L 10/22/18 06:00 Pulse Rate 92 H 10/22/18 06:00 Respiratory Rate 18 10/22/18 06:00 Blood Pressure 108/72 10/22/18 06:00 Pulse Oximetry 98 10/22/18 06:00 Medical Decision Making MDM Narrative Medical decision making narrative: 33yo M with schizophrenia/bipolar here stating he is suicidal. He was [id number] in the 115s and has always been tachycardic in the past it seems. May be drug related or dehydration. Repeat HR is now 98bpm. He is well appearing. Pt is awake and alert and denies any overdose today. Psych screen ordered. Psych screen labs ordered, my PA will follow up with these results and medically clear after. Pt can go to [facility]. Pt will be for psych evaluation. Medical decision making narrative: During the course of the patients emergency department visit, the patients history, examination, and differential diagnosis were reviewed with the patient. The patient was placed on a monitoring coordinator with oximetry and frequent blood pressure monitoring. The patient was initially provided Labs, ekg, ua, uds. EKG showing 98 beats per minute, SD intervaL 129, QRS duration 110, QT/Qtc . Incomplete RIGHt bundle branch block. The patients laboratory studies were reviewed and remarkable for very mild anemia, mild elevation in sodium and chloride. Calcium is low urine drug screen is negative acetaminophen level negative, salicylate levels negative. No acute findings that need addressing at this time. Patient does have multiple sores to his feet as he was wearing shoes with no socks so okay to apply bacitracin topically twice daily during his stay in the hospital. At this time he is medically cleared for psychiatric evaluation. Medical Screen Exam Complete: Yes Emergency Medical Condition: Yes Medical Screen Exam Complete: Yes Emergency Medical Condition: Yes Differential Diagnosis Differential Diagnosis: Schizophrenia vs. bipolar disorder vs. dehydration vs. drug use vs. electrolyte abnormality Lab Data Lab results reviewed: Yes I reviewed the patient's lab results. Result diagrams: 10/21/18 10:12 10/21/18 10:12 Lab Results 10/21/18 10/21/18 10/21/18 Range/Units 10:12 10:12 10:12 WBC 6.7 (4.0-11.0) th/mm3 RBC 3.87 L (4.50-5.90) mil/mm3 Hgb 12.0 L (13.0-17.0) gm/dL Hct 35.8 L (39.0-51.0) % MCV 92.5 (80.0-100.0) fL MCH 31.0 (27.0-34.0) pg MCHC 33.5 (32.0-36.0) % RDW 14.3 (11.6-17.2) % Plt Count 216 (150-450) th/mm3 MPV 8.6 (7.0-11.0) fL Neut % (Auto) 62.8 (16.0-70.0) % Lymph % (Auto) 26.4 (9.0-44.0) % [place] % (Auto) 7.6 (0.0-8.0) % Eos % (Auto) 2.7 (0.0-4.0) % Baso % (Auto) 0.5 (0.0-2.0) % Neut # (Auto) 4.2 (1.8-7.7) th/mm3 Lymph # (Auto) 1.8 (1.0-4.8) th/mm3 Ellsworth # (Auto) 0.5 (0.0-0.9) th/mm3 Eos # (Auto) 0.2 (0.0-0.4) th/mm3 Baso # (Auto) 0.0 (0.0-0.2) th/mm3 WBC Differential . Differential Comment Auto diff final Sodium 146 H (136-145) meq/L Potassium 3.7 (3.5-5.1) meq/L Chloride 110 H (98-107) meq/L Carbon Dioxide 29.1 (21.0-32.0) meq/L Anion Gap 7 (5-15) meq/L BUN 15 (7-18) mg/dL Creatinine 0.98 (0.60-1.30) mg/dL Estimated GFR 89 (>89) mL/min Random Glucose 114 H (74-106) mg/dL Calcium 8.1 L (8.5-10.1) mg/dL Magnesium 2.2 (1.5-2.5) mg/dL Total Bilirubin 0.1 L (0.2-1.0) mg/dL AST 39 H (15-37) U/L ALT 56 (12-78) U/L Alkaline Phosphatase 96 (45-117) U/L Total Protein 7.0 (6.4-8.2) g/dL Albumin 3.5 (3.4-5.0) g/dL TSH 1.080 (0.358-3.740) uIU/mL Salicylates Less than 1.7 L (2.8-20.0) mg/dL Urine Opiates Screen (Neg) Acetaminophen Less than 2.0 L (10.0-30.0) mcg/mL Ur Barbiturates Screen (Neg) Ur Amphetamines Screen (Neg) U Benzodiazepines Scrn (Neg) Urine Cocaine Screen (Neg) U Cannabinoids Screen (Neg) Serum Alcohol Less than 3 (0-5) mg/dL 10/21/18 Range/Units 10:25 WBC (4.0-11.0) th/mm3 RBC (4.50-5.90) mil/mm3 Hgb (13.0-17.0) gm/dL Hct (39.0-51.0) % MCV (80.0-100.0) fL MCH (27.0-34.0) pg MCHC (32.0-36.0) % RDW (11.6-17.2) % Plt Count (150-450) th/mm3 MPV (7.0-11.0) fL Neut % (Auto) (16.0-70.0) % Lymph % (Auto) (9.0-44.0) % [place] % (Auto) (0.0-8.0) % Eos % (Auto) (0.0-4.0) % Baso % (Auto) (0.0-2.0) % Neut # (Auto) (1.8-7.7) th/mm3 Lymph # (Auto) (1.0-4.8) th/mm3 [place] # (Auto) (0.0-0.9) th/mm3 Eos # (Auto) (0.0-0.4) th/mm3 Baso # (Auto) (0.0-0.2) th/mm3 WBC Differential Differential Comment Sodium (136-145) meq/L Potassium (3.5-5.1) meq/L Chloride (98-107) meq/L Carbon Dioxide (21.0-32.0) meq/L Anion Gap (5-15) meq/L BUN (7-18) mg/dL Creatinine (0.60-1.30) mg/dL Estimated GFR (>89) mL/min Random Glucose (74-106) mg/dL Calcium (8.5-10.1) mg/dL Magnesium (1.5-2.5) mg/dL Total Bilirubin (0.2-1.0) mg/dL AST (15-37) U/L ALT (12-78) U/L Alkaline Phosphatase (45-117) U/L Total Protein (6.4-8.2) g/dL Albumin (3.4-5.0) g/dL TSH (0.358-3.740) uIU/mL Salicylates (2.8-20.0) mg/dL Urine Opiates Screen Neg (Neg) Acetaminophen (10.0-30.0) mcg/mL Ur Barbiturates Screen Neg (Neg) Ur Amphetamines Screen Neg (Neg) U Benzodiazepines Scrn Neg (Neg) Urine Cocaine Screen Neg (Neg) U Cannabinoids Screen Neg (Neg) Serum Alcohol (0-5) mg/dL ECG Data EKG Prior to Arrival: No Attestation: I personally reviewed and interpreted this ECG as follows: Interpretation: NSR 98bpm. Normal axis. SD interval 129ns. QTc 400ms. No significant ST elevation or depression. QRS narrow. Discharge Plan Discharge Disposition Patient Disposition: Sign Out(ED Internal Use Only) Discharge Condition Condition: Stable Discharge Order Discharge Orders: ED Use Only Admit Order (Routine); Ordered 10/21/18 Ordered By: Sloane Lopez Discharge Details Diagnosis: Depression Physicians Team ED Provider: Claudia Schaffer ED Midlevel Provider: Martha Arreguin Primary Care Provider: Primary Care Korina Beasley Attending Provider: Chaiffetz,Riley B. Status ED Status: Left Department Discharge Information Discharge Date/Time: 10/21/18 17:39
[2018-10-21] MEDS ORDERED: Sod Chloride 0.9% Inj 1,000 ML IV.SIG SCH (10:15)
[2018-10-21 10:41] LABS: Baso % (Auto) 0.5 % (0.0-2.0); Eos # (Auto) 0.2 th/mm3 (0.0-0.4); Eos % (Auto) 2.7 % (0.0-4.0); Hematocrit 35.8 % (39.0-51.0); Lymph # (Auto) 1.8 th/mm3 (1.0-4.8); Lymph % (Auto) 26.4 % (9.0-44.0); Mean Corpuscular HGB Conc 33.5 % (32.0-36.0); Mean Corpuscular Volume 92.5 fL (80.0-100.0); Mean Platelet Volume 8.6 fL (7.0-11.0); Mono # (Auto) 0.5 th/mm3 (0.0-0.9); Mono % (Auto) 7.6 % (0.0-8.0); Neut # (Auto) 4.2 th/mm3 (1.8-7.7); Neut % (Auto) 62.8 % (16.0-70.0); Platelet Count 216 th/mm3 (150-450); Red Blood Count 3.87 mil/mm3 (4.50-5.90); Red Cell Distribution Width 14.3 % (11.6-17.2); White Blood Count 6.7 th/mm3 (4.0-11.0)
[2018-10-21 10:57] LABS: Amphetamine Screen,Urine Neg (Neg); Barbiturate Screen,Urine Neg (Neg); Cannabinoid Screen,Urine Neg (Neg); Cocaine Screen,Urine Neg (Neg)
[2018-10-21 11:02] LABS: Opiate Screen,Urine Neg (Neg)
[2018-10-21 11:02] LABS: Albumin 3.5 g/dL (3.4-5.0); Anion Gap 7 meq/L (5-15); Aspartate Aminotransferase 39 U/L (15-37); Blood Urea Nitrogen 15 mg/dL (7-18); Calcium 8.1 mg/dL (8.5-10.1); Carbon Dioxide 29.1 meq/L (21.0-32.0); Chloride 110 meq/L (98-107); Glomerular Filtration Rate 89 mL/min (>89); Glucose,Random 114 mg/dL (74-106); Magnesium 2.2 mg/dL (1.5-2.5); Potassium 3.7 meq/L (3.5-5.1); Sodium 146 meq/L (136-145)
[2018-10-21 11:14] LABS: Alanine Aminotransferase 56 U/L (12-78); Alkaline Phosphatase 96 U/L (45-117)
[2018-10-21] MEDS: Acetaminophen 325 MG Tablet PO PRN (11:45)
[2018-10-21] MEDS ORDERED: Aluminum/Magnesium/Simethacone Susp 30 ML UDC PO PRN (13:51)
--- NOTE | 2018-10-21 16:01 | P.PNPSY ---
This is a 33-year-old single, male who presents voluntarily to this facility reporting suicidal ideation. The patient is well-known to this facility and the psychiatric department. This is his third time here and is many days. He was recently discharged from [facility]'s inpatient unit. His last inpatient admission at this facility was from March 05 - March 08, 2018. His toxicology screen is negative. Patient's behavior is somewhat bizarre he is heard yelling loudly in his room in [facility] when no one is around. When asked what the problem is he reports that "there are spirits in the room and they are cutting me on my wrists and my arms my legs". He points to various places on his body where no cuts are noted. He then goes on to tell me that he has ordered a "tracker off [employer] that pinpoints my location and I am reporting it to the police". He does agree to allow the staff to give him some ETO medications to help him calm down as he is becoming more agitated and I feel he is a danger to himself. He also agrees that he would like to come in for an inpatient admission and be treated. Therefore, I am admitting him to locked inpatient psychiatric unit for further evaluation and treatment as deemed necessary. His medications were verified from [facility] and continued with a consent signed. He has signed himself in voluntarily.
--- NOTE | 2018-10-21 18:56 | ECG ---
Date Performed: 10/21/2018 Time Performed: 10:06:33 PTAGE: 33 years EKG: Sinus rhythm INCOMPLETE RIGHT BUNDLE BRANCH BLOCK BORDERLINE ECG PREVIOUS TRACING : 10/19/2018 16.15 Since the previous tracing, no significant change noted DOCTOR: Maik Covarrubias Interpretating Date/Time 10/21/2018 18:54:24
[2018-10-21] MEDS ORDERED: Influenza (Quadrivalent) Vaccine 0.5 ML Syringe IM ONE (20:00)
[2018-10-21] MEDS: QUEtiapine 100 MG Tablet PO SCH (20:45)
[2018-10-21] MEDS: Escitalopram 10 MG Tablet PO SCH (20:56)
[2018-10-21] MEDS ORDERED: Mirtazapine 15 MG Tablet PO SCH (21:00)
[2018-10-21] MEDS ORDERED: ESCITALOPRAM OXALATE 5 MG PO SCH (21:00)
[2018-10-22] MEDS: Escitalopram 10 MG Tablet PO SCH ×2 (08:04→09:30)
[2018-10-22] MEDS: Acetaminophen 325 MG Tablet PO PRN (09:30)
[2018-10-22 09:58] LABS: Calcium 8.9 mg/dL (8.5-10.1); Carbon Dioxide 29.1 meq/L (21.0-32.0); Potassium 4.4 meq/L (3.5-5.1)
[2018-10-22 10:02] LABS: Chol/HDL Ratio 3.67 Ratio; HDL Cholesterol 48.1 mg/dL (40.0-60.0)
--- NOTE | 2018-10-22 10:38 | P.HPPSY ---
Provisional Diagnosis Admission Date: October 21, 2018 14:49 [place].: 1. Schizophrenia, paranoid type, in mild acute exacerbation 2. Dextromethorphan and synthetic cannabinoid abuse 3. Rule out component of malingering for skilled nursing, for controlled substances, or other secondary gain 4. Rule out PTSD [place].: Deferred Competence Certification of Person's Competence To Provide Express and Informed Consent I have personally examined Riley Marti JR, a person being served at [facility] on, October 22, 2018 1038. Express and informed consent means consent voluntarily given in writing, by a competent person, after sufficient explanation and disclosure of the subject matter involved to enable the person to make a knowing and willful decision without any element of force, fraud, deceit, duress, or other form of constraint or coercion. This person is 18 years of age or older, is not now known to be incompetent to consent to treatment with a guardian advocate, and does not have a health care surrogate or proxy currently making medical treatment decisions. I have found this person to be one of the following: [X] Competent to provide express and informed consent, as defined above, for voluntary admission to this facility and is competent to provide express and informed consent for treatment. He/she has the consistent capacity to make well reasoned, willful, and knowing decisions concerning his or her medical or mental health treatment. The person fully and consistently understands the purpose of the admission for examination/placement and is fully capable of personally exercising all rights assured under [place] [] Incompetent to provide express and informed consent to voluntary admission, and this is incompetent to provide express and informed consent to treatment. The person must be transferred to involuntary status and a petition for a guardian advocate filed with the Circuit Court. [] Refusing to provide express and informed consent to voluntary admission but is competent to provide express and informed consent for treatment. The person must be discharged or transferred to involuntary status. Form shall be completed within 24 hours of a person's arrival at the receiving facility and filed in the clinical record of each person: 1. Admitted on a voluntary basis 2. Permitted to provide express and informed consent to his/her own treatment 3. Allowed to transfer from involuntary to voluntary status 4. Prior to permitting a person to consent to his or her own treatment after having been previously found incompetent to consent to treatment. History of Present Illness Capacity: Has capacity Chief Complaint: "I need assisted living housing. I've been on the streets 6 or 8 months, and I'm not feeling too well." History of Present Illness: Mr. Marti is a 33 year-old male with a reported history of schizophrenia who presented voluntarily to the ED complaining of suicidal ideation. I note that the patient was seen in the ED on 10/19 with concerns for unintentional K2 and Mucinex overdose in the setting of recreational use and on 10/20 for a prostate and STI check. Patient was evaluated yesterday in the ED by the psychiatric nurse practitioner. Reviewing the electronic medical record, I note that patient was hospitalized under my care in February of this year with diagnosis of unspecified psychosis; he left A on that occasion. Patient seen and examined with nurse, Tracy. Chart reviewed. Case discussed with nursing staff. Nurse Tracy has noted some thought blocking in patient. Patient also reportedly told nurse that he malingered suicidal ideation for housing. On my exam, patient tells me that he believes that someone is attacking him through cuts on his skin. He believes that this force is mounting an attack on his nervous system. He demonstrates an area on his forearm as evidence of these cuts, but no such cuts are noted. He endorses subjective paranoia and is ambivalent when asked about feelings of thought manipulation. He denies any ideas of reference. He denies any AVH. Mood is "all right" and sleep and appetite are reportedly fair. I can elicit no depressive or hypomanic/manic symptoms. He does report a remote trauma history , although he will not go into details, and says that he has occasional nightmares/flashbacks and some avoidance associated with this trauma. Remainder of the psychiatric ROS is negative. No acute physical complaints. He does complain of some chronic low back pain and is somewhat medication seeking for opiate agonist pain medications for this. He is also somewhat medication seeking for benzodiazepines. I have reviewed patient's [facility] report, and this reveals only sporadic, short-term scripts for Klonopin, most recently 1 week's worth in May of this year. Past psychiatric history: The patient reports a history of schizophrenia versus bipolar disorder. He is not presently under the care of a psychiatrist. Patient reports that he was most recently psychiatrically admitted to the inpatient unit at the long term when he was serving a term for domestic battery. When asked about a history of suicide attempts he replies "not really. I cut my wrist to draw blood and relieve sins" about 4-5 years ago. He does not like how the Lexapro makes him feel. He has tolerated Celexa, Zoloft and Paxil better. He does tolerate the Seroquel well. Family history: The patient reports a history of schizophrenia in his mother and father. He denies a family history of suicide. Chemical dependency history: Patient reports sporadic abuse of K2 and Mucinex, most recently 5 days ago by his report. He denies any other substance use. Social history: The patient reports that he was born and raised in [place]. He has 2 years of college education and also attended trade school. He reports that he has not worked in several years. He collects disability in the amount of $750 per month. He denies any history. He denies any active legal issues but says that he was recently jailed for 6 months on domestic battery charges. He denies any access to guns or firearms. He describes himself as "esvin [employer], esvin [employer]." Endorses history of trauma but will not provide details. - Inpatient Certification I certify that the inpatient services were ordered in accordance with Medicare regulations governing the order. This includes certification that hospital inpatient services are reasonable and necessary and in the case of services not specified as inpatient-only under 42 CFR 419.22(n), that they are appropriately provided as inpatient services in accordance to with the 2-midnight benchmark under 43 CFR 412.3(e) I certify that inpatient psychiatric hospital services are medically necessary. Evaluation and treatment and/or diagnostic testing are expected to improve the patient's condition. The patient needs on a daily basis, active treatment furnished directly by or requiring the supervision of inpatient psychiatric facility personnel. Estimated Total Length of Stay (Days): 7 Plans for Post Hospital Care: Not yet determined Review of Systems All other systems reviewed negative except as stated in HPI [facility] - History History Provided By: Patient - Medical History Medical History: Medical History (Last Reviewed 10/21/18 @ 09:55 by Jazmine Benavidez) Bipolar 1 disorder, depressed, severe Depression Fibromyalgia Polysubstance abuse Schizophrenia Ecstasy abuse Tachycardia - Surgical History Surgical History: Surgical History (Last Reviewed 10/21/18 @ 09:55 by Jazmine Benavidez) History of hand surgery - Tobacco History Second Hand Smoke Exposure: Yes Tobacco Use In Past 30 Days: Yes Smoking Status: Current every day smoker Tobacco Type: Cigarettes - Alcohol History How Often Do You Have a Drink Containing Alcohol: 2 to 3 times a week - Substance Use History Substance History: Active Abuse - Substance Use Type Marijuana Status: Active Route Used: Inhalation Frequency: 1X's weekly Comment: K2, socially - Travel History Recent Travel in the [place] Within the Last 8 Weeks: No Recent Travel Out of the Country Within the Last 8 Weeks: No - Immunization History Tetanus Immunization: >5 Years Hx Influenza Vaccine This Season: No Quality Measures - Psychiatric History Psychological trauma history: See above. - Patient Strengths Patient's strengths (minimum of 2): In a monitored setting. Verbally fluent. Medications and Allergies Active Medications: Active Medications Acetaminophen (Tylenol) 650 mg PO Q4H PRN PRN Reason: pain Last Admin: 10/22/18 09:30 Dose: 650 mg Al Hydrox/Mg Hydrox/Simethicone (Mag-Al Plus Susp Liq) 30 ml PO Q6H PRN PRN Reason: DYSPEPSIA Al Hydroxide/Mg Hydroxide (Milk Of Magnesia Liq) 30 ml PO Q12H PRN PRN Reason: Mild Constipation Bacitracin (Baciguent Oint) 1 applicatio TOPICAL BID [facility] Last Admin: 10/21/18 20:44 Dose: 1 applicatio Escitalopram Oxalate (Lexapro) 5 mg PO BID [facility] Last Admin: 10/22/18 09:30 Dose: 5 mg Mirtazapine (Remeron) 15 mg PO [facility] Last Admin: 10/21/18 20:45 Dose: 15 mg Miscellaneous (Pill Splitter) 1 each OTHER UNSCH PRN PRN Reason: SEE LABEL COMMENTS Quetiapine Fumarate (Seroquel) 100 mg PO [facility] Last Admin: 10/21/18 20:45 Dose: 100 mg Allergies Allergy/AdvReac Type Severity Reaction Status Date / Time azithromycin Allergy Intermediate Rash Verified 10/21/18 09:37 Home Medications Medication Instructions Recorded Confirmed Type escitalopram oxalate [Lexapro] 5 mg PO BID 10/21/18 10/21/18 History mirtazapine [Remeron] 15 mg PO HS 10/21/18 10/21/18 History quetiapine [Seroquel] 100 mg PO HS 10/21/18 10/21/18 History Results - Labs CBC & Chem 7: 10/21/18 10:12 10/22/18 08:45 Labs: Laboratory Results - last 24 hr 10/21/18 10/21/18 10/21/18 10:12 10:12 10:12 WBC 6.7 RBC 3.87 L Hgb 12.0 L Hct 35.8 L MCV 92.5 MCH 31.0 MCHC 33.5 RDW 14.3 Plt Count 216 MPV 8.6 Neut % (Auto) 62.8 Lymph % (Auto) 26.4 [place] % (Auto) 7.6 Eos % (Auto) 2.7 Baso % (Auto) 0.5 Neut # (Auto) 4.2 Lymph # (Auto) 1.8 [place] # (Auto) 0.5 Eos # (Auto) 0.2 Baso # (Auto) 0.0 WBC Differential . Differential Comment Auto diff final Sodium 146 H Potassium 3.7 Chloride 110 H Carbon Dioxide 29.1 Anion Gap 7 BUN 15 Creatinine 0.98 Estimated GFR 89 Random Glucose 114 H Calcium 8.1 L Magnesium 2.2 Total Bilirubin 0.1 L AST 39 H ALT 56 Alkaline Phosphatase 96 Total Protein 7.0 Albumin 3.5 Triglycerides Cholesterol LDL Cholesterol, Calc HDL Cholesterol Cholesterol/HDL Ratio TSH 1.080 Salicylates Less than 1.7 L Urine Opiates Screen Acetaminophen Less than 2.0 L Ur Barbiturates Screen Ur Amphetamines Screen U Benzodiazepines Scrn Urine Cocaine Screen U Cannabinoids Screen Serum Alcohol Less than 3 10/21/18 10/22/18 10:25 08:45 WBC RBC Hgb Hct MCV MCH MCHC RDW Plt Count MPV Neut % (Auto) Lymph % (Auto) [place] % (Auto) Eos % (Auto) Baso % (Auto) Neut # (Auto) Lymph # (Auto) [place] # (Auto) Eos # (Auto) Baso # (Auto) WBC Differential Differential Comment Sodium 142 Potassium 4.4 Chloride 107 Carbon Dioxide 29.1 Anion Gap 6 BUN 13 Creatinine 1.12 Estimated GFR 76 L Random Glucose 87 Calcium 8.9 D Magnesium Total Bilirubin AST ALT Alkaline Phosphatase Total Protein Albumin Triglycerides 227 H Cholesterol 177 LDL Cholesterol, Calc 84 HDL Cholesterol 48.1 Cholesterol/HDL Ratio 3.67 TSH Salicylates Urine Opiates Screen Neg Acetaminophen Ur Barbiturates Screen Neg Ur Amphetamines Screen Neg U Benzodiazepines Scrn Neg Urine Cocaine Screen Neg U Cannabinoids Screen Neg Serum Alcohol Labs reviewed. Mild normocytic anemia noted. This appears to be within patient 's recent historic range. Exam Vital signs: Vital Signs 10/22/18 06:00 Temperature 97.1 F L Pulse Rate 92 H Respiratory Rate 18 Blood Pressure 108/72 Pulse Oximetry 98 Intake & Output 10/21/18 10/22/18 10/22/18 18:59 06:59 18:59 Weight 87.543 kg Narrative: Physical examination was completed by the ED provider. On my examination today , the patient appears to be in no acute physical distress. No signs of intoxication or withdrawal noted. No motor abnormalities noted. Labs and vital signs reviewed. Mental Status Examination Appearance: Appropriate Consciousness: Alert Orientation: x4 Motor Activity: Normal gait Speech: Unremarkable Language: Adequate Fund of Knowledge: Adequate Attention and Concentration: Adequate Memory: Unremarkable Mood: Appropriate ("All right") Affect: Blunt Thought Process & Associations: Intact Thought Content: Delusional Hallucination Type: None Delusion Type: Paranoid, Somatic Suicidal Ideation: No Suicidal Plan: No Suicidal Intention: No Homicidal Ideation: No Homicidal Plan: No Homicidal Intention: No Mental Status Exam Remarks: Insight and judgment are perhaps fair. Assessment and Plan - Assessment (1) Schizophrenia, paranoid type Code(s): F20.0 - Paranoid schizophrenia Status: Acute (2) Mild dextromethorphan abuse Code(s): F19.10 - Other psychoactive substance abuse, uncomplicated Status: Acute (3) Synthetic cannabinoid abuse Code(s): F19.10 - Other psychoactive substance abuse, uncomplicated Status: Acute - Plan Plan: 33-year-old male with psychiatric history as detailed above who presents voluntarily for psychiatric evaluation. On my examination today, the patient articulate some paranoid and somatic delusions, and exacerbation of underlying primary psychotic disorder is suspected, although a component of drug-induced psychosis may also be possible as lingering effect from reported recent use of dextromethorphan and synthetic cannabinoid. A component of conscious simulation is also suspected in the sense that presenting SI appears to have been malingered. As patient's psychotic symptoms appear genuine, we will focus our treatment there. Admit inpatient. Voluntary status. Titrate Seroquel to 50mg qAM and 100mg qHS to target psychotic symptoms. Plan for ongoing titration to effect and as tolerated. EKG reviewed; QTc wnl. Discontinue Remeron and Lexapro per patient preference and replace with Cymbalta 30 mg daily given patient's reported history of chronic back pain. Atarax as needed for anxiety. Melatonin as needed for sleep. R/B/A for medications discussed with patient. Vitals every shift. Counselor to see. Collateral information. Disposition planning. Estimated length of stay: 5-7 days. Justification for Continued Inpatient Stay: Medication changes. Impairment in reality construction. Discharge Planning: Pending psychiatric stabilization. Request Healthcare Surrogate/Guardian Advocate?: No
[2018-10-22] MEDS ORDERED: Melatonin 5 MG Tablet PO PRN (10:39)
[2018-10-22] MEDS: QUEtiapine 100 MG Tablet PO SCH ×2 (11:35→20:41)
[2018-10-22 15:48] LABS: Hemoglobin A1c 4.9 % (4.3-6.0)
[2018-10-23] MEDS: QUEtiapine 100 MG Tablet PO SCH (08:36)
--- NOTE | 2018-10-23 10:18 | P.PNPSY ---
Subjective Chief Complaint: Psychosis Remarks: Patient seen and examined with nurse. Chart reviewed. Patient completed ROR set to ~11am this morning. Case discussed with nursing staff. Patient was paranoid regarding roommate overnight per nursing report. On my exam, patient tells me that his evening was "esvin schizophrenic." He does indeed say that he was fearful of roommate, fearing that he was monitoring patient's thoughts. No violent thoughts against roommate, who has been moved. He admits to some ongoing paranoia. He believes that forces are poking him with knives. Denies SI or HI. He does not like the Cymbalta saying that it makes him feel "stranger, not comparative to a girlfriend boyfriend. Daltzing." Some neologism noted. He feels that he did best on Celexa and Invega Sustenna, but he also asks to try multiple different medications including Abilify and Haldol. I will adjust therapy per patient preference as detailed below, but I have recommended that henceforth we stick with chosen therapy unless there are significant side effects as any agent will take some time to demonstrate therapeutic effect, and we do not want to simply churn through meds. No other physical complaints. Vital Signs Temp Pulse Resp BP Pulse Ox 10/23/18 05:15 98.0 F 101 H 17 114/77 98 10/22/18 18:47 98.5 F 87 17 112/62 97 Intake and Output 10/22/18 10/23/18 10/23/18 22:59 06:59 14:59 Other: Date of Last Bowel Movement 10/23/18 Laboratory Results - last 24 hr 10/22/18 08:45 Hemoglobin A1c 4.9 Labs reviewed. Review of Systems All other systems reviewed negative except as stated in HPI Mental Status Examination Appearance: Appropriate Consciousness: Alert Orientation: x4 Motor Activity: Other (No motor abnormalities noted.) Speech: Unremarkable Language: Adequate Fund of Knowledge: Adequate Attention and Concentration: Adequate Memory: Unremarkable Mood: Appropriate Affect: Euthymic Thought Process & Associations: Intact Thought Content: Delusional Hallucination Type: None Delusion Type: Paranoid, Somatic Suicidal Ideation: No Suicidal Plan: No Suicidal Intention: No Homicidal Ideation: No Homicidal Plan: No Homicidal Intention: No Mental Status Exam Remarks: Insight and judgment are fair to poor. Assessment and Plan - Assessment (1) Schizophrenia, paranoid type Code(s): F20.0 - Paranoid schizophrenia Status: Acute (2) Mild dextromethorphan abuse Code(s): F19.10 - Other psychoactive substance abuse, uncomplicated Status: Acute (3) Synthetic cannabinoid abuse Code(s): F19.10 - Other psychoactive substance abuse, uncomplicated Status: Acute - Plan Plan: Discontinue Seroquel and Cymbalta. Start Invega 6mg qHS and Celexa 20mg daily for management of psychiatric symptoms. R/B/A for medications reviewed with patient. To consider Invega Sustenna. Patient believes he received Sustenna at a hospital in [place], and we will try to obtain those records. Continue to monitor on inpatient unit; transfer to private room. Continue other care as ordered. Patient rescinded ROR prior to expiration of ROR. Began termination/ transition of care discussion with patient in advance of this provider's departure on 10/29. Justification for Continued Inpatient Stay: Med changes. Impairment in reality construction. High risk for decompensation in less restrictive setting. Discharge Planning: Patient expresses interest in [facility] placement, and counselor will work with patient towards this goal. Request Healthcare Surrogate/Guardian Advocate?: No
[2018-10-24] MEDS: Acetaminophen 325 MG Tablet PO PRN (05:54)
[2018-10-24] MEDS: Citalopram 20 MG Tablet PO SCH (08:01)
--- NOTE | 2018-10-24 10:18 | P.PNPSY ---
Subjective Chief Complaint: Psychosis Remarks: Patient seen and examined with nurse. Chart reviewed. Overnight, nursing notes indicate patient stated "I GOING TO KILL SOMEONE." PATIENT STATED THIS OUTLOUD IN THE DAYROOM." Case discussed with nursing staff. Nursing reports patient remains interpersonally odd. He was reportedly pleased to have started Celexa today because it is a "female" medication, unlike Zoloft and Paxil, which are "black." He has been observed by staff speaking loudly to himself in his room, and when staff inquire about this behavior, patient says that he is talking to friends in [place]. Patient has completed another right of release this morning. On my exam, patient remains discharge focused. He tells me "I'm right on point with my depression. I'm antidepressed." However, patient says "I keep getting hurt. Demons from heaven and hell. I can't go there [i.e. heaven]. I almost got there." When I inquire about his statement in the dayroom, he says "I was having bad thoughts that someone wouldn't let me in the heaven room." He denies any violent ideation directed against anyone on the unit. He denies any SI. He complains of feeling like he is being poked in his arms and says he needs "paropogen" or Lyrica. He would also take gabapentin, but he considers this to be inferior. In context, I suspect this "poking" sensation is related to his delusional belief that he is being attacked by demonic forces, and patient himself agrees that this is the case when I put it to him. However, he insists that he has received Lyrica and gabapentin from this hospital, although I cannot see any record of these agents having been administered to him. He also tells me that he has "sickle cell amenia (sic)" and needs NuIron 150mg. He also believes that he has cirrhosis, although there is no clinically significant transaminitis or thrombocytopenia to suggest impaired synthetic function. Patient seems to be quite somatically preoccupied in general. Denies side effects from medications and is quite pleased with his current psychotropic medication regimen. Vital Signs Temp Pulse Resp BP Pulse Ox 10/24/18 06:05 97.4 F L 97 H 17 106/57 L 97 10/23/18 17:04 98.4 F 109 H 18 125/90 98 Intake and Output 10/23/18 10/24/18 10/24/18 22:59 06:59 14:59 Other: Date of Last Bowel Movement 10/24/18 Labs reviewed. Patient does have a mild normocytic anemia, and I will check iron studies to evaluate whether he does indeed have an iron deficiency anemia. Review of Systems All other systems reviewed negative except as stated in HPI (Limitation: Psychosis) Mental Status Examination Appearance: Appropriate Consciousness: Alert Orientation: x4 Motor Activity: Other (No motor abnormalities noted.) Speech: Unremarkable Language: Adequate Fund of Knowledge: Adequate Attention and Concentration: Adequate Memory: Unremarkable Mood: Appropriate Affect: Euthymic Thought Process & Associations: Intact Thought Content: Hallucinations, Delusional Hallucination Type: Other (Internally preoccupied) Delusion Type: Paranoid, Somatic Suicidal Ideation: No Suicidal Plan: No Suicidal Intention: No Homicidal Ideation: No Homicidal Plan: No Homicidal Intention: No Mental Status Exam Remarks: Insight and judgment are perhaps fair to poor. Assessment and Plan - Assessment (1) Schizophrenia, paranoid type Code(s): F20.0 - Paranoid schizophrenia Status: Acute (2) Mild dextromethorphan abuse Code(s): F19.10 - Other psychoactive substance abuse, uncomplicated Status: Acute (3) Synthetic cannabinoid abuse Code(s): F19.10 - Other psychoactive substance abuse, uncomplicated Status: Acute - Plan Plan: Titrate Invega to 9mg qHS to manage psychotic symptoms. Continue Celexa as ordered. Given patient's statements recorded in nursing notes and ongoing psychosis, I fear that he is unpredictable with respect to risk for violence, particularly in a less restrictive setting. He has completed a right of release but is not safe for discharge at this time. I will initiate a petition for involuntary psychiatric hospitalization and will consult for second opinion. The patient does retain capacity to consent for psychotropic medications at this time. I will check iron studies and order supplementation as appropriate. We will continue to monitor patient's other physical complaints ; I do suspect that they have their basis in somatic delusion and anticipate that they will be improved with treatment of patient's psychosis. Continue to monitor on high acuity unit. Continue other medications and care as ordered. Justification for Continued Inpatient Stay: Impairment in reality construction. Medication changes. Concern for impairment and safety. High risk for decompensation in less restrictive environment. Discharge Planning: Pending psychiatric stabilization. Request Healthcare Surrogate/Guardian Advocate?: No
[2018-10-24 17:15] LABS: % Iron Saturation 12.1 % (20-50)
[2018-10-25] MEDS: Acetaminophen 325 MG Tablet PO PRN ×3 (05:25→22:43)
[2018-10-25] MEDS: Citalopram 20 MG Tablet PO SCH (08:35)
--- NOTE | 2018-10-25 11:33 | P.PNPSY ---
Subjective Chief Complaint: Psychosis Remarks: Patient seen and examined with counselor. Chart reviewed. Case discussed with nursing staff. Case discussed in treatment team. Counselor relates that patient has been at to assisted living facilities in the past but has not done well in them and is not interested in an assisted living facility at this time. Therapists note that patient is attending some groups and is exhibiting bizarre thought and behavior in these groups. On my exam, patient is quite paranoid and agitated. He is desperate to leave the hospital because he feels that he is the victim of demonic attack here. He becomes fairly threatening toward this provider when I explain that he is not yet psychiatrically stable enough for safe discharge, pursuing this provider when I exit the room. He is able to be redirected by staff and does not require ETO. He denies SI/HI but seems unpredictable with respect to risk for violence in his current state. He denies side effects from medications. He has no new physical complaints. He continues to feel that demons are attacking his nervous system. Vital Signs Temp Pulse Resp BP Pulse Ox 10/25/18 10:32 18 10/25/18 06:00 97.8 F 104 H 18 109/72 97 10/24/18 16:54 98.0 F 115 H 17 108/77 97 Laboratory Results - last 24 hr 10/24/18 16:16 Iron 52 L TIBC 428 % Saturation 12.1 L Ferritin 40 Labs reviewed. Iron level low and TIBC high normal, not inconsistent with iron deficiency. Review of Systems unobtainable due to mental condition Mental Status Examination Appearance: Appropriate Consciousness: Alert, Vigilant Orientation: Person, Place (at least) Motor Activity: Other (No abnormal motor movements noted.) Speech: Rapid, Other (Loud) Language: Adequate Fund of Knowledge: Adequate Attention and Concentration: Adequate Memory: Unremarkable Mood: Angry, Oppositional, Anxious Affect: Irritable, Labile, Anxious Thought Process & Associations: Intact Thought Content: Hallucinations, Delusional Hallucination Type: Other (Remains int stim) Delusion Type: Paranoid, Somatic Suicidal Ideation: No Suicidal Plan: No Suicidal Intention: No Homicidal Ideation: No Homicidal Plan: No Homicidal Intention: No Insight: Poor Judgment: Poor Assessment and Plan - Assessment (1) Schizophrenia, paranoid type Code(s): F20.0 - Paranoid schizophrenia Status: Acute (2) Mild dextromethorphan abuse Code(s): F19.10 - Other psychoactive substance abuse, uncomplicated Status: Acute (3) Synthetic cannabinoid abuse Code(s): F19.10 - Other psychoactive substance abuse, uncomplicated Status: Acute - Plan Plan: Titrate Invega to 12mg at HS to target psychotic symptoms. Hold off on initiation of EVANS antipsychotic until we are sure that patient is responding adequately to oral agent. Continue Celexa as ordered. Add iron supplement. Continue to monitor on high acuity unit. Continue other care as ordered. Justification for Continued Inpatient Stay: Medication changes. Impairment in reality construction. High risk for decompensation in less restrictive setting. Discharge Planning: Pending psychiatric stabilization. Request Healthcare Surrogate/Guardian Advocate?: No
--- NOTE | 2018-10-25 13:01 | P.PNPSY ---
Subjective Chief Complaint: Psychosis Remarks: Mr. Marti is a 33 year-old male with a reported history of schizophrenia who presented voluntarily to the ED complaining of suicidal ideation. I note that the patient was seen in the ED on 10/19 with concerns for unintentional K2 and Mucinex overdose in the setting of recreational use and on 10/20 for a prostate and STI check. Patient was evaluated yesterday in the ED by the psychiatric nurse practitioner. Reviewing the electronic medical record, I note that patient was hospitalized under my care in February of this year with diagnosis of unspecified psychosis; he left AMA on that occasion. Patient seen and examined with nurse, Tracy. Chart reviewed. Case discussed with nursing staff. Nurse Tracy has noted some thought blocking in patient. Patient also reportedly told nurse that he malingered suicidal ideation for housing. On my exam, patient tells me that he believes that someone is attacking him through cuts on his skin. He believes that this force is mounting an attack on his nervous system. He demonstrates an area on his forearm as evidence of these cuts, but no such cuts are noted. He endorses subjective paranoia and is ambivalent when asked about feelings of thought manipulation. He denies any ideas of reference. He denies any AVH. Mood is "all right" and sleep and appetite are reportedly fair. I can elicit no depressive or hypomanic/manic symptoms. He does report a remote trauma history , although he will not go into details, and says that he has occasional nightmares/flashbacks and some avoidance associated with this trauma. Remainder of the psychiatric ROS is negative. No acute physical complaints. He does complain of some chronic low back pain and is somewhat medication seeking for opiate agonist pain medications for this. He is also somewhat medication seeking for benzodiazepines. I have reviewed patient's E-[facility] report, and this reveals only sporadic, short-term scripts for Klonopin, most recently 1 week's worth in May of this year. The patient is a 33-year-old man, homeless, single, unemployed, supported by [facility], with a psychiatric history of schizophrenia, schizoaffective disorder, cannabis use disorder, multiple psychiatric hospitalizations, previous suicidal attempts, aggressive behavior, admitted this time due to depression and suicidal ideation. Consulted to me for second opinion. On my psychiatric evaluation today the patient is found in his room, with with reassurance and redirection the patient is able to tell me that he is here because he has been using too much of K2. He has been depressed, and having suicidal thoughts, even though he does not have any plan at the moment. He denies paranoia at the moment. Mental Status Examination Appearance: Appropriate Consciousness: Alert, Vigilant Orientation: Person, Place (at least) Motor Activity: Other (No abnormal motor movements noted.) Speech: Rapid, Other (Loud) Language: Adequate Fund of Knowledge: Adequate Attention and Concentration: Adequate Memory: Unremarkable Mood: Angry, Oppositional, Anxious Affect: Irritable, Labile, Anxious Thought Process & Associations: Intact Thought Content: Hallucinations, Delusional Hallucination Type: Other (Remains int stim) Delusion Type: Paranoid, Somatic Suicidal Ideation: No Suicidal Plan: No Suicidal Intention: No Homicidal Ideation: No Homicidal Plan: No Homicidal Intention: No Insight: Poor Judgment: Poor Assessment and Plan - Assessment (1) Schizophrenia, paranoid type Code(s): F20.0 - Paranoid schizophrenia Status: Acute (2) Mild dextromethorphan abuse Code(s): F19.10 - Other psychoactive substance abuse, uncomplicated Status: Acute (3) Synthetic cannabinoid abuse Code(s): F19.10 - Other psychoactive substance abuse, uncomplicated Status: Acute - Plan Plan: I have seen and examined this patient, reviewed documentation, I agree and concur with Dr. Apple assessment and plan. Justification for Continued Inpatient Stay: Continue Admission Request Healthcare Surrogate/Guardian Advocate?: No
--- NOTE | 2018-10-25 14:54 | P.TTN ---
- Patient Problems Problems: 1. Discharge planning 2. Medication compliance 3. Knowledge deficit 4. Lack of coping skills - Progress Toward Goals Provider Present: Dr. Mary Apple (Dr. Apple is titrating antipsychotic medications.) Psychiatric Counselors Present: Bryan Jennings Jr., [facility] (Patient is refusing to be placed in an assisted living facility. Patient very adamantly maintains that he will seek his own placement outside of the hospital. Patient is refusing to allow counselor to assist with safe discharge plan at this time.) Group Spec/RT/OT/PERRY Present: KALA Arango (Patient does not attend groups at this time.) - Documentation Teaching Recipient: Patient
[2018-10-25] MEDS: Polysaccharide Iron Complex 150 MG Capsule PO SCH (20:33)
[2018-10-26] MEDS: Polysaccharide Iron Complex 150 MG Capsule PO SCH ×2 (08:41→20:17)
[2018-10-26] MEDS: Citalopram 20 MG Tablet PO SCH (08:41)
--- NOTE | 2018-10-26 14:46 | P.PNPSY ---
Subjective Chief Complaint: Psychosis Remarks: Reviewed electronic medical records and discussed case with staff. Follow-up was conducted in the patient's room with TRI Smith present. His nurse reports that he is been somewhat better today. He has been compliant with his medications and has not had any behavioral disturbances so far today. He does remain paranoid. He reports that his mood is good but that he must be discharged soon as he, "has to go to school to get enrolled". He reports having nightmares but states that his appetite's been okay. He denies side effects from medication. He then launches into a tangent about needing tramadol , Neurontin, as well as a neurology appointment. He states, "I am dying and you people do not give a fuck that I'm dying. Every time I come in this place I tell you people I am dying and you just do not care". His speech was rapid and pressured and he was not redirectable. Mental Status Examination Appearance: Appropriate Consciousness: Alert, Vigilant Orientation: Person, Place (at least) Motor Activity: Other (No abnormal motor movements noted.) Speech: Rapid, Other (Loud) Language: Adequate Fund of Knowledge: Adequate Attention and Concentration: Adequate Memory: Unremarkable Mood: Angry, Oppositional, Anxious Affect: Irritable, Labile, Anxious Thought Process & Associations: Intact Thought Content: Hallucinations, Delusional Hallucination Type: Other (Remains int stim) Delusion Type: Paranoid, Somatic Suicidal Ideation: No Suicidal Plan: No Suicidal Intention: No Homicidal Ideation: No Homicidal Plan: No Homicidal Intention: No Insight: Poor Judgment: Poor Assessment and Plan - Assessment (1) Schizophrenia, paranoid type Code(s): F20.0 - Paranoid schizophrenia Status: Acute - Plan Plan: Patient will be reevaluated by the attending psychiatrist. Continue with current treatment plan. Justification for Continued Inpatient Stay: Moving this patient to a less restrictive environment would likely result in decompensation. Request Healthcare Surrogate/Guardian Advocate?: No
[2018-10-27] MEDS: Polysaccharide Iron Complex 150 MG Capsule PO SCH ×2 (08:29→20:34)
[2018-10-27] MEDS: Citalopram 20 MG Tablet PO SCH (08:29)
--- NOTE | 2018-10-27 11:18 | P.PNPSY ---
Subjective Chief Complaint: Psychosis Remarks: Patient seen and examined with nurseRenate. Chart reviewed. Case discussed with nursing staff. No behavioral issues noted overnight. On my examination today, the patient apologizes to this provider for his behavior on Sunday. He reports that he is feeling much improved today. He says that he is sleeping well. He denies any demonic attack. He denies any suicidal or homicidal ideation. Some neologisms noted. Denies side effects from medications. Declines long-acting injectable antipsychotic when offered. No physical complaints. Hopeful for discharge soon. Vital Signs Temp Pulse Resp BP Pulse Ox 10/27/18 06:00 97.8 F 56 L 17 145/80 H 96 10/26/18 18:08 98.5 F 103 H 17 124/85 97 Intake and Output 10/26/18 10/27/18 10/27/18 22:59 06:59 14:59 Other: Date of Last Bowel Movement 10/26/18 Labs reviewed. No new labs. Review of Systems All other systems reviewed negative except as stated in HPI Mental Status Examination Appearance: Appropriate Consciousness: Alert Orientation: Person, Place (at least) Motor Activity: Other (No motor abnormalities noted) Speech: Unremarkable, Other (Loud) Language: Adequate, Neologism (Mild) Fund of Knowledge: Adequate Attention and Concentration: Adequate Memory: Unremarkable Mood: Appropriate Affect: Appropriate Thought Process & Associations: Intact, Logical, Linear Thought Content: Appropriate Hallucination Type: None Delusion Type: None Suicidal Ideation: No Suicidal Plan: No Suicidal Intention: No Homicidal Ideation: No Homicidal Plan: No Homicidal Intention: No Insight: Poor Judgment: Poor Assessment and Plan - Assessment (1) Schizophrenia, paranoid type Code(s): F20.0 - Paranoid schizophrenia Status: Acute (2) Mild dextromethorphan abuse Code(s): F19.10 - Other psychoactive substance abuse, uncomplicated Status: Acute (3) Synthetic cannabinoid abuse Code(s): F19.10 - Other psychoactive substance abuse, uncomplicated Status: Acute - Plan Plan: Continue oral paliperidone and Celexa as ordered. Patient declines long-acting injectable. Continue to monitor on the inpatient unit. Continue other medications and care as ordered. Justification for Continued Inpatient Stay: Monitoring for impairment in reality construction. Discharge Planning: Possible discharge tomorrow. Request Healthcare Surrogate/Guardian Advocate?: No
[2018-10-28] MEDS: Polysaccharide Iron Complex 150 MG Capsule PO SCH (08:33)
[2018-10-28] MEDS: Citalopram 20 MG Tablet PO SCH (08:34)
--- NOTE | 2018-10-28 08:37 | P.DSPSY ---
Psychiatry Discharge Summary Inpatient Psychiatric care?: Yes Advance Directives: No Mental Health Advance Directive: No Health Care Proxy: No - Admission Admission Date: October 21, 2018 14:49 - Admission Diagnosis (1) Schizophrenia, paranoid type Code(s): F20.0 - Paranoid schizophrenia (2) Mild dextromethorphan abuse Code(s): F19.10 - Other psychoactive substance abuse, uncomplicated (3) Synthetic cannabinoid abuse Code(s): F19.10 - Other psychoactive substance abuse, uncomplicated Brief History: Mr. Marti is a 33 year-old male with a reported history of schizophrenia who presented voluntarily to the ED complaining of suicidal ideation. I note that the patient was seen in the ED on 10/19 with concerns for unintentional K2 and Mucinex overdose in the setting of recreational use and on 10/20 for a prostate and STI check. Patient was evaluated yesterday in the ED by the psychiatric nurse practitioner. Reviewing the electronic medical record, I note that patient was hospitalized under my care in February of this year with diagnosis of unspecified psychosis; he left A on that occasion. Patient seen and examined with nurse, Tracy. Chart reviewed. Case discussed with nursing staff. Nurse Tracy has noted some thought blocking in patient. Patient also reportedly told nurse that he malingered suicidal ideation for housing. On my exam, patient tells me that he believes that someone is attacking him through cuts on his skin. He believes that this force is mounting an attack on his nervous system. He demonstrates an area on his forearm as evidence of these cuts, but no such cuts are noted. He endorses subjective paranoia and is ambivalent when asked about feelings of thought manipulation. He denies any ideas of reference. He denies any AVH. Mood is "all right" and sleep and appetite are reportedly fair. I can elicit no depressive or hypomanic/manic symptoms. He does report a remote trauma history , although he will not go into details, and says that he has occasional nightmares/flashbacks and some avoidance associated with this trauma. Remainder of the psychiatric ROS is negative. No acute physical complaints. He does complain of some chronic low back pain and is somewhat medication seeking for opiate agonist pain medications for this. He is also somewhat medication seeking for benzodiazepines. I have reviewed patient's [email or web address] report, and this reveals only sporadic, short-term scripts for Klonopin, most recently 1 week's worth in May of this year. Past psychiatric history: The patient reports a history of schizophrenia versus bipolar disorder. He is not presently under the care of a psychiatrist. Patient reports that he was most recently psychiatrically admitted [facility] unit [facility] the [facility] when he was serving a term for domestic battery. When asked about a history of suicide attempts he replies "not really. I cut my wrist to draw blood and relieve sins" about 4-5 years ago. He does not like how the Lexapro makes him feel. He has tolerated Celexa, Zoloft and Paxil better. He does tolerate the Seroquel well. Family history: The patient reports a history of schizophrenia in his mother and father. He denies a family history of suicide. Chemical dependency history: Patient reports sporadic abuse of K2 and Mucinex, most recently 5 days ago by his report. He denies any other substance use. Social history: The patient reports that he was born and raised in [place]. He has 2 years of college education and also attended trade school. He reports that he has not worked in several years. He collects disability in the amount of $750 per month. He denies any history. He denies any active legal issues but says that he was recently jailed for 6 months on domestic battery charges. He denies any access to guns or firearms. He describes himself as "esvin [employer], esvin [employer]." Endorses history of trauma but will not provide details. Tobacco Use In Past 30 Days: Yes How Often Do You Have a Drink Containing Alcohol: 2 to 3 times a week Hospital Course: Patient was admitted to a locked, inpatient psychiatric unit. Appropriate precautions were in place throughout patient's hospital stay. Patient was seen and examined on the unit by psychiatry and also visited by counselor. Psychotropic medications were adjusted. Patient had improvement in presenting psychiatric symptomatology during the course of his hospital stay. Patient's behavior and self-care improved with the benefit of psychopharmacologic treatment. On the day of discharge: Patient seen and examined. Chart reviewed. Case discussed with nursing staff. No behavioral issues noted overnight. On my examination today, the patient is requesting discharge from the inpatient psychiatric unit today. He tells me "my thoughts are clear." He denies any suicidal or homicidal ideation, intent or plan. He has no depressive or hypomanic/manic symptoms. He is reportedly sleeping and eating well. He denies any audiovisual hallucinations. He denies any command auditory hallucinations to hurt self or others. He does not verbalize any delusional material and denies feeling like he is the victim of ongoing demonic attack. He denies side effects from medications. He declines initiation of long-acting injectable Invega Sustenna prior to discharge. He has no physical complaints. He declines assistance with placement at this time. Weighing the relevant factors and based on the available evidence, I daycare manager that the patient does not meet criteria for involuntary psychiatric hospitalization. There is no evidence of imminent risk of harm to self or others, nor is there self care deficit at present to substantiate involuntary psychiatric hospitalization. The patient is requesting discharge from the inpatient psychiatric unit today, and I have no basis to retain him over his objection. He will be discharged today to [facility] with psychiatric follow-up as arranged by counselor. Patient is also to follow-up with primary care. I have counseled the patient to abstain from any substances of abuse. I have counseled the patient regarding warning signs for need to return to the psychiatric emergency room as part of a general safety plan. - Discharge Discharge Date: 10/28/18 - Discharge Diagnosis (1) Schizophrenia, paranoid type Diagnosis: Principal (Stabilized) Code(s): F20.0 - Paranoid schizophrenia Status: Chronic (2) Mild dextromethorphan abuse Diagnosis: Secondary (Counseled to quit) Code(s): F19.10 - Other psychoactive substance abuse, uncomplicated Status: Chronic (3) Synthetic cannabinoid abuse Diagnosis: Secondary (Counseled to quit) Code(s): F19.10 - Other psychoactive substance abuse, uncomplicated Status: Chronic Discharge Disposition: Penitentiary - Discharge Instructions Discharge Diet: Regular Diet Activities You Can Perform: Weight Bearing As Tolerat - Discharge Time <= 30 minutes Mental Status Examination Appearance: Appropriate Consciousness: Alert Orientation: x4 Motor Activity: Normal gait, Other (No hand tremor, no dystonia, no dyskinesia, no other motor abnormalities noted) Speech: Unremarkable Language: Adequate, Other (Patient displays no neologisms today) Fund of Knowledge: Adequate Attention and Concentration: Adequate Memory: Unremarkable Mood: Appropriate Affect: Appropriate Thought Process & Associations: Intact, Logical, Linear Thought Content: Appropriate Hallucination Type: None Delusion Type: None Suicidal Ideation: No Suicidal Plan: No Suicidal Intention: No Homicidal Ideation: No Homicidal Plan: No Homicidal Intention: No Insight: Poor Judgment: Poor Mental Status Exam Remarks: Insight and judgment are likely chronically poor in the setting of long-term psychotic illness. Discharge/Advance Care Plan - Results Vital Signs: Last Vital Signs Temp 97.6 F 10/28/18 06:00 Pulse 99 H 10/28/18 06:00 Resp 18 10/28/18 06:00 BP 140/59 L 10/28/18 06:00 Pulse Ox 98 10/28/18 06:00 Lab Results: Laboratory Results Hemoglobin A1c 4.9 % (4.3-6.0) 10/22/18 08:45 Triglycerides 227 mg/dL (42-150) H 10/22/18 08:45 Cholesterol 177 mg/dL (120-200) 10/22/18 08:45 LDL Cholesterol, Calc 84 mg/dL (0-99) 10/22/18 08:45 HDL Cholesterol 48.1 mg/dL (40.0-60.0) 10/22/18 08:45 TSH 1.080 uIU/mL (0.358-3.740) 10/21/18 10:12 Summary of Procedures: None done Pending Results: None - Medications Number of antipsychotic medications at discharge: 1 - Discharge Care Plan Goals to Promote Your Health: * To prevent worsening of your condition and complications * To maintain your health at the optimal level Directions to Meet Your Goals: Take your medications as prescribed Follow your dietary instruction Follow activity as directed Keep your appointments as scheduled Take your immunizations and boosters as scheduled If your symptoms worsen call your PCP, if no PCP go to Urgent Care Center or Emergency Room For 04/06 questions related to your inpatient stay or results of tests pending at discharge, please contact Dr. Riley Apple MD at Smoking is Dangerous to Your Health. Avoid second hand smoking
== END 2018-10-28 11:25 | disposition home or self-care (01) ==
LOC: NEPD 09:12 → NEDA 14:49 → H270 17:40
PROVIDERS: ADMIT Psychiatry & Neurology Psychiatry; ATTEND Psychiatry & Neurology Psychiatry

== ENCOUNTER 2018-12-29 06:47 | Inpatient (IN) ==
[2018-12-29] MEDS ORDERED: Acetaminophen 325 MG Tablet PO PRN (14:29)
[2018-12-29] MEDS ORDERED: Aluminum/Magnesium/Simethacone Susp 30 ML UDC PO PRN (14:29)
[2018-12-30] MEDS ORDERED: Haloperidol Inj 5 MG/ML Ampul ONE (09:22)
[2018-12-30 10:11] LABS: Anion Gap 8 meq/L (5-15); Blood Urea Nitrogen 10 mg/dL (7-18); Calcium 8.9 mg/dL (8.5-10.1); Carbon Dioxide 26.1 meq/L (21.0-32.0); Chloride 108 meq/L (98-107); Glomerular Filtration Rate Greater Than 89 mL/min (>89); Glucose,Random 98 mg/dL (74-106); Potassium 4.2 meq/L (3.5-5.1); Sodium 142 meq/L (136-145)
[2018-12-30 10:12] LABS: Cholesterol 115 mg/dL (120-200); Triglycerides 153 mg/dL (42-150)
[2018-12-30 10:15] LABS: Carbamazepine (Tegretol) 0.8 mcg/mL (4.0-12.0); Chol/HDL Ratio 2.75 Ratio; HDL Cholesterol 41.7 mg/dL (40.0-60.0); LDL Cholesterol,Calculated 43 mg/dL (0-99)
[2018-12-30] MEDS ORDERED: Haloperidol Inj 5 MG/ML Ampul IM ONE (10:30)
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
[2018-12-30] MEDS: Venlafaxine XR 75 MG Capsule PO SCH (15:12)
[2018-12-30] MEDS: ARIPiprazole 5 MG Tablet PO SCH (15:12)
[2018-12-30 15:23] VITALS: RESP 18
[2018-12-30 17:21] LABS: Hemoglobin A1c 5.1 % (4.3-6.0)
[2018-12-30] MEDS: Melatonin 5 MG Tablet PO SCH (21:00)
[2018-12-30] MEDS: traZODone 100 MG Tablet PO SCH (21:00)
[2018-12-31] MEDS: ARIPiprazole 5 MG Tablet PO SCH (08:11)
[2018-12-31] MEDS: Venlafaxine XR 75 MG Capsule PO SCH (08:11)
--- NOTE | 2018-12-31 09:59 | P.TTN ---
- Patient Problems Problems: 1. Discharge planning 2. Medication compliance 3. Knowledge deficit 4. Lack of coping skills - Progress Toward Goals Provider Present: Other (Patient is psychotic and needs to remain for further stabilization.) Psychiatric Counselors Present: Bryan Jennings Jr., [facility] (Counselor will meet with the patient today to discuss safe discharge plan.) Group Spec/RT/OT/PERRY Present: VICKY Boss (Patient attends select groups.) - Documentation Teaching Recipient: Patient
--- NOTE | 2018-12-31 11:58 | P.PNPSY ---
Subjective Chief Complaint: "I have been feeling more depressed" Remarks: Patient seen for follow-up, chart reviewed, patient discussed with nursing staff ; we reviewed the patient's mood, thoughts, and behaviors from overnight and this morning. Nursing reports that the patient slept a full 8 hours overnight. He remains secluded to his room yesterday but today has been involved in recreational therapy. He denies suicidal or homicidal ideations and is denying hallucinations. Nursing reports the patient seems disorganized with bizarre behavior characterized by feeling a cup of urine at his bedside and a sock full of his feces. Patient's affect was observed to be an appropriate range and generally positive. He continues to ruminate on different vitamins and medications that he believes will be helpful for him. 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 The patient was confronted about this idea and he was willing to acknowledge that is unlikely that his pituitary was removed but he continued to ruminate on the need for hormone replacement. The patient signed a right to release in the reason he gave us that he had a friend that was going to [place] today and could give him a ride. We discussed the need for continued stabilization of his mood and thoughts and he agreed with plan for at least 1 more day of treatment on the inpatient unit. Mental Status Examination Appearance: Disheveled Consciousness: Alert Orientation: Person, Place, Situation Motor Activity: Normal gait Speech: Speech impediment Language: Adequate Fund of Knowledge: Adequate Attention and Concentration: Easily distracted Memory: Unremarkable Mood: Sad, Anxious Affect: Blunt Thought Process & Associations: Disorganized Thought Content: Other (Drug-seeking) Hallucination Type: None Delusion Type: Somatic (Patient expressed belief that his pituitary was removed by his father and he needs hormones) Suicidal Ideation: No Homicidal Ideation: No Insight: Poor Judgment: Impulsive Assessment and Plan - Assessment (1) Schizoaffective disorder, depressive type Code(s): F25.1 - Schizoaffective disorder, depressive type Status: Acute (2) Cannabis abuse Code(s): F12.10 - Cannabis abuse, uncomplicated Status: Acute - Plan Plan: December 30, 2018: Initial assessment and plan 33-year-old male with history of schizophrenia and polysubstance abuse presents complaining of worsening depression and thoughts of injuring himself to reduce tension. His thought processes are significant for disorganized and tangential but he is consistently motivated for treatment and able to discussed risks benefits side effects and alternative treatments therefore he will be allowed to sign in voluntarily and provide for his own informed consent of medications. The patient expressed understanding of the difference between an antidepressant and an antipsychotic and he is able to recall past trials and provide adequate informed consent for the treatments listed above. 1. Continue with admission to inpatient psychiatry at [facility]; convert to voluntary/competent legal status. 2. Routine unit precautions. 3. Comfort medications ordered for as needed treatment of constipation, heartburn, diarrhea, and mild pain. 4. Hydroxyzine 50mg po q6H prn anxiety/insomnia. 5. Start nicotine patch 21 mg/day for smoking cessation. 6. Start Abilify 5 mg a day for treatment of schizophrenia and mood. 7. Start Effexor 75 mg/day as a substitute for Pristiq. 8. Start trazodone 100 mg at bedtime for insomnia. 9. Start melatonin 5 mg at bedtime for chronic insomnia. 10. Start Ativan 1 mg every 8 hours as needed for severe agitation or anxiety. 11. Patient will participate in the unit programming to include group therapies , milieu therapy and recreational therapies. 12. Discharge planning: The patient will need follow-up with psychiatry as well as referrals for substance abuse treatment. Patient's housing status is unknown at this time. Estimated LOS: 7 days December 31, 2018: Fair response to initial treatment as the patient is more active and seems to be interacting appropriately with the milieu. He continues to express disorganized thoughts and delusional thinking but has cooperated with the start of psychotropics. His request for discharge today seems impulsive and illogical but without evidence of imminent risk to self or others his request will likely be supported once safe discharge plan can be coordinated. Continue inpatient psychiatric treatment and stabilization, voluntary status with anticipated discharge tomorrow. Continue current medications unchanged. Justification for Continued Inpatient Stay: Patient remains an elevated risk for self-harm by self neglect due to his disorganized thought processes and recent suicidal ideations and therefore will require further inpatient stabilization and preparation of a safe discharge plan. Moving patient to a less restrictive environment at this time may result in decompensation.
[2018-12-31] MEDS: LORazepam 1 MG Tablet PO PRN ×2 (12:20→20:22)
[2018-12-31] MEDS: Vitamin B Complex/Vit C/Folic Tablet PO SCH (14:54)
[2018-12-31 17:24] VITALS: O2SAT 96
[2018-12-31] MEDS: traZODone 100 MG Tablet PO SCH (20:18)
[2018-12-31] MEDS: Melatonin 5 MG Tablet PO SCH (20:18)
[2019-01-01 05:51] VITALS: BP 139/69; PULSE 92; TEMP 98.9
[2019-01-01] MEDS: Venlafaxine XR 75 MG Capsule PO SCH (08:22)
[2019-01-01] MEDS: Vitamin B Complex/Vit C/Folic Tablet PO SCH (08:22)
[2019-01-01] MEDS: ARIPiprazole 5 MG Tablet PO SCH (08:22)
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
== END 2019-01-01 10:10 | disposition home or self-care (01) | DRG 885 ==
LOC: H270 13:36
PROVIDERS: ADMIT Psychiatry & Neurology Psychiatry; ATTEND Psychiatry & Neurology Psychiatry
CPT/HCPCS: 80048; 80061; 80156; 83036; J1200; J1630; J2060; Q0163